=== PATIENT | male | born 1970 | race Caucasian/White ===

== ENCOUNTER 2022-12-18 06:19 | Day surgery (SDC) | payer BC, SELFPAY ==
[2022-12-18] VITALS (12 sets, daily range): BP systolic 95–128; BP diastolic 66–93; PULSE 81–100; RESP 16; TEMP 36.1–36.8; O2SAT 98–100; BMI 29.9
[2022-12-18] MEDS: LACTATED RINGERS 1000 ML 1,000 ML 100 ML IV ×2 (06:45→08:25)
[2022-12-18] MEDS: SODIUM CHLORIDE 0.9 % (FLUSH) 10 ML SYRINGE IVF (06:45)
--- NOTE | 2022-12-18 07:10 | SUR.PREOP ---
HOME COVID TEST NEGATIVE.
[2022-12-18] MEDS: CEFAZOLIN 2 GM INJ IVP (07:40)
--- NOTE | 2022-12-18 07:56 | W.ANESCHARGE ---
Anesthesia Charges Start Date/Time Anesthesia Start Date: 12/18/22 Anesthesia Start Time: 07:26 Stop Date/Time Anesthesia Stop Date: 12/18/22 Anesthesia Stop Time: 08:12
[2022-12-18] MEDS: BUPIVACAINE 0.25% 30 ML INJECTION (07:59)
--- NOTE | 2022-12-18 08:04 | P.ORPRC_ITS ---
Procedure Note Date of procedure: 12/18/22 Procedure: PREOPERATIVE DIAGNOSIS: Right knee medial meniscus tear POSTOPERATIVE DIAGNOSIS: Right knee medial meniscus tear NAME OF OPERATION: Right knee arthroscopic partial medial meniscectomy SURGEON: Micheal Hayes MD OPHTHALMIC MEDICAL TECHNOLOGIST: JESSENIA Olmstead ANESTHESIA: Spinal ESTIMATED BLOOD LOSS: 0 mL COMPLICATIONS: None SPECIMENS: None DRAINS: None PREOPERATIVE ANTIBIOTICS: Ancef 2 gram INDICATIONS: The patient is a 52-year-old with a history of right knee medial pain. MRI scan is consistent with a medial meniscus tear. Despite appropriate nonoperative management, including activity modification, antiinflammatories, [id number] pain medication, bracing, physical therapy, and injections they continue to have pain and disability. Operative intervention was offered. The risks, benefits and expected outcomes were discussed in detail. These included but were not limited to: Infection, bleeding, injury to blood vessel or nerve, venous thromboembolism. All questions were answered to their satisfaction. PROCEDURE: Spinal anesthesia was administered. The patient was placed supine on the operating room table. The right lower extremity was prepped and draped in the usual sterile fashion. The limb was exsanguinated with the Daniel bandage. The pneumatic tourniquet was inflated to 300 mmHg. A standard anterolateral portal was established. The arthroscope was introduced. The working portal was established anteromedially. Diagnostic arthroscopy was performed with findings as follows: The suprapatellar pouch is normal. Articular surface on the patella is normal. Articular surface on the trochlea is normal. The medial gutter is normal. The medial compartment shows diffuse grade 2/3 change on the medial femoral condyle, normal articular cartilage on the medial tibial plateau. The medial meniscus has a radial tear of the posterior horn from the leading edge, not to the capsule. This creates an anteriorly based unstable flap. There is some undersurface horizontal cleavage tearing of the anterior and posterior flaps. The root is intact. The notch shows the ACL to be intact. The lateral compartment shows normal articular cartilage on the lateral femoral condyle and lateral tibial plateau. The lateral meniscus is normal. The lateral gutter is normal. The posterior horn of the medial meniscus was debrided to a stable base using a combination of priscila through both portals. Unstable chondral flaps on the medial femoral condyle were debrided with the shaver through both portals, taken to a stable base. Arthroscopic instruments were removed, the portal sites were Steri-Stripped closed, the knee was infiltrated with 30 mL of 0.25% Marcaine without epinephrine. A dry dressing was applied, the tourniquet was released. Sponge and needle counts were correct x 2. The patient tolerated the procedure well. There were no apparent complications. They were carefully transferred to the hospital bed and taken to the postanesthesia care unit in satisfactory condition. PLAN: The patient will be discharged to home. They may weightbear as tolerates. Range of motion will be unrestricted. They will follow up in the office next week for a wound check.
--- NOTE | 2022-12-18 08:14 | W.ANESCHARGE ---
Anesthesia Charges Start Date/Time Anesthesia Start Date: 12/18/22 Anesthesia Start Time: 07:26 Stop Date/Time Anesthesia Stop Date: 12/18/22 Anesthesia Stop Time: 08:12
== END 2022-12-18 10:21 | disposition home or self-care (01) ==
PROVIDERS: PCP Internal Medicine; Visit Provider Orthopaedic Surgery
PROC: (CPT 29870; principal; 2022-12-18 07:45)
DX: M23.221 Derangement of posterior horn of medial meniscus due to old tear or injury, right knee (principal)
CPT/HCPCS: 29881; 01400; 82962; T1013; J0690; J2250; J2370; J2400; J2405; J2704; J3010; J3490; J7120

== ENCOUNTER 2023-01-08 06:12 | Day surgery (SDC) | payer BC, SELFPAY ==
[2023-01-08] VITALS (14 sets, daily range): BP systolic 114–144; BP diastolic 68–102; PULSE 97–115; RESP 12–20; TEMP 36.2–37; O2SAT 96–100; BMI 28.5
[2023-01-08] MEDS: LACTATED RINGERS 1000 ML 1,000 ML 100 ML IV ×2 (06:10→09:32)
[2023-01-08] MEDS: SODIUM CHLORIDE 0.9 % (FLUSH) 10 ML SYRINGE IVF (06:44)
[2023-01-08] MEDS: CEFAZOLIN 2 GM INJ IVP (08:47)
--- NOTE | 2023-01-08 08:57 | SUR.OPER ---
PATIENT QUESTIONS ANSWERED SATISFACTORILY PREOPERATIVELY WITH AN TROLLEY WIRE INSTALLER. PATIENT BROUGHT TO OR #1 PER WHEELCHAIR. Patient positioned supine on OR #1 bed.? BILATERAL ARMS ARE TUCKED IN A NEUTRAL POSITION USING THE DRAWSHEET BY CHIRAG FLOYD CRNA. Final approval of positioning by surgeon.
[2023-01-08] MEDS: BUPIVACAINE 0.25% 30 ML INJECTION (09:05)
--- NOTE | 2023-01-08 09:57 | PM.GSPRC ---
Operative Note Date of procedure: 01/08/23 Pre-op diagnosis: Left inguinal hernia Post-op diagnosis: same Type of Procedure: Laparoscopic left inguinal hernia repair with mesh Indications: The patient is a 52-year-old male who presented with a symptomatic left inguinal hernia for the past few months. After discussion of options, he elected to proceed with repair. Procedure Description: After discussing the risks and benefits of the procedure, the patient signed informed consent.? The operative site was marked and the patient was brought to the operating room and placed on the operating table in supine position.? Care was taken to pad the patient's pressure points.?? The patient was then intubated by anesthesia.?? The operative site was then prepped and draped in the usual sterile fashion.? A time-out was then performed. A curvilinear incision was made below the umbilicus. Dissection was carried down to subcutaneous tissue until the anterior rectus fascia was encountered. This was incised off the midline on the left. The rectus muscle fibers were then retracted exposing the posterior fascia. A port with a dissecting balloon was then introduced into the pre-preperitoneal space. This was inflated under direct vision. The balloon was deflated, removed, and a 10 mm working port was placed. The space was insufflated and a 10 mm 30-degree scope was then advanced into the space. Two 5 mm ports were placed in the midline under direct vision. Dissection began on the left side. Jai's ligament and the pubic bone were exposed medially. There appeared to be a weakening of the abdominal wall in the area of a direct hernia. Following this, dissection was carried out laterally. A small hernia sac with a large cord lipoma was noted. The sac and cord lipoma were dissected free from the cord structures using a combination of sharp and blunt dissection. Once the sac was completely reduced, a piece of Bard 3DMax mesh for the appropriate side was placed into the abdomen. This was positioned with the marker pointed medially. A Tacker was used to attach the mesh medially at Jai's ligament, medially on the abdominal wall and 1 tack laterally with care to avoid the epigastric vessels and stay above the inguinal ligament. Once this was completed the sac was placed on top of the mesh and the preperitoneal space desufflated under direct vision to ensure the mesh laid flat. 10 mL of 0.5% Marcaine were instilled into the preperitoneal space through a port. The ports were removed. The fascia from the infraumbilical port was closed with 0 Vicryl. The skin incisions were closed with absorbable subcuticular suture. Sterile dressings were then applied. The scrotum was examined to ensure that both testicles were down. Instrument sponge and needle counts were correct at the end of the case. ? The patient was then woken and transported to the recovery area in stable condition. ? The patient tolerated the procedure well. Findings: Possible direct hernia defect with what appeared to be weakening of the abdominal wall in this area. Indirect hernia with a large cord lipoma. Implants: Bard 3DMax mesh Anesthesia: GETA Surgeon: Gricel Oliva MD Estimated blood loss (mL): 10 Condition: stable Disposition: PACU
--- NOTE | 2023-01-08 10:08 | W.ANESCHARGE ---
Anesthesia Charges Start Date/Time Anesthesia Start Date: 01/08/23 Anesthesia Start Time: 08:32 Stop Date/Time Anesthesia Stop Date: 01/08/23 Anesthesia Stop Time: 10:10
[2023-01-08] MEDS: HYDROCODONE-ACETAMIN 5-325 MG 1 TAB PO (12:15)
== END 2023-01-08 12:30 | disposition home or self-care (01) ==
PROVIDERS: PCP Student in an Organized Health Care Education/Training Program; Visit Provider Surgery
PROC: (CPT 49650; principal; 2023-01-08 09:00)
DX: K40.90 Unilateral inguinal hernia, without obstruction or gangrene, not specified as recurrent (principal)
CPT/HCPCS: 49650; 00830; 82962; T1013; A9270; C1781; J0330; J0690; J1100; J2250; J2370; J2405; J2704; J2710; J3010; J3490; J7120

== ENCOUNTER 2023-01-22 14:43 | Outpatient (RCR) | payer BC, SELFPAY | END 2023-04-23 23:59 | disposition home or self-care (01) | PROVIDERS: PCP Internal Medicine; Visit Provider Physician Assistant Surgical | DX: M25.561 Pain in right knee (principal); Z98.890 Other specified postprocedural states; M62.81 Muscle weakness (generalized); Z51.89 Encounter for other specified aftercare | CPT/HCPCS: 97110; 97162; T1013 ==

== ENCOUNTER 2023-01-30 16:30 | Outpatient (RCR) | payer BC, SELFPAY | END 2023-03-30 11:27 | disposition home or self-care (01) | PROVIDERS: PCP Student in an Organized Health Care Education/Training Program; Visit Provider Student in an Organized Health Care Education/Training Program | DX: M54.16 Radiculopathy, lumbar region (principal); M79.605 Pain in left leg; M62.562 Muscle wasting and atrophy, not elsewhere classified, left lower leg; Z51.89 Encounter for other specified aftercare | CPT/HCPCS: 97012; 97110; 97162; T1013 ==

== ENCOUNTER 2023-01-30 19:15 | Emergency (ER) | payer BC, SELFPAY ==
--- NOTE | 2023-01-30 19:31 | CRLHL7_ITS ---
For Patients: As a result of the Century Cures Act, medical imaging exams and procedure reports are released immediately into your electronic medical record. You may view this report before your referring provider. If you have questions, please contact your health care provider. Indication: Back pain with radiculopathy Technique: Two images of the lumbosacral spine were acquired Comparison: None Findings: Normal alignment. Height of vertebral bodies is normal. No fracture, dislocation or destructive process. No narrowing of the intervertebral disc spaces. Relatively mild facet osteoarthritis primarily at L4-L5 and L5-S1. Minimal levoscoliosis. Impression: Relatively mild degenerative changes primarily in the facet joints of L4-L5 and L5-S1. Minimal levoscoliosis. No fracture, destructive process or loss of vertebral body height Dictated by Ze Flor MD @ 01/30/2023 7:58:32 PM (Electronically Signed)
[2023-01-30 19:34] VITALS: BP 164/103; PULSE 104; RESP 16; TEMP 36.9; O2SAT 100; BMI 29.9
--- NOTE | 2023-01-30 20:10 | ED.BACK ---
HPI - Back Pain/Injury General Date Seen: 01/30/23 Chief Complaint: Back Injury/Pain Stated Complaint: Pain Left side down leg Time Seen by Provider: 01/30/23 19:18 Source: patient and family Mode of arrival: ambulatory Limitations: no limitations History of Present Illness HPI Narrative: Patient is a 52-year-old gentleman who presents here with left-sided back pain, he has had this for some time, I think it is been dating back to September when he was snow shoveling. He describes pain that comes from his back down his left leg, on the lateral distribution to the anterior feldman, to the top of his foot on the large toe. He has noted a primarily worse now as he has just been through a right-sided knee arthroscopic surgery and a left-sided groin all inguinal hernia repair. He is taking Tylenol and ibuprofen for the discomfort, he notes no history of fevers chills or sweats there is no personal history of malignancy. MD elicited complaint: back pain Related Data Home Medications Medication Instructions Recorded Confirmed external catheter, male (Active 11/12/22 12/25/22 Cath) metformin 500 mg tablet 500 mg PO BID 11/12/22 01/30/23 tamsulosin 0.4 mg capsule 0.4 mg PO DAILY 11/12/22 01/30/23 gabapentin 300 mg capsule 300 mg PO TID 12/17/22 01/30/23 glipizide 5 mg tablet, extended 5 mg PO DAILY 12/17/22 01/30/23 release 24 hr (Glucotrol XL) Allergies Allergy/AdvReac Type Severity Reaction Status Date / Time No Known Drug Allergies Allergy Verified 01/08/23 06:30 Review of Systems Status of ROS: Reports: 10 or more systems reviewed and unremarkable except as noted in History and below [facility] Medical History Diabetes ?E11.9 - Type 2 diabetes mellitus without complications (ICD-10) Inflammatory disease of prostate ?N41.9 - Inflammatory disease of prostate, unspecified (ICD-10) Surgical History H/O left inguinal hernia repair ?Z98.890 - Other specified postprocedural states (ICD-10) ?Z87.19 - Personal history of other diseases of the digestive system (ICD-10) History of appendectomy ?Z90.49 - Acquired absence of other specified parts of digestive tract (ICD-10) Hx of cystoscopy ?Z98.890 - Other specified postprocedural states (ICD-10) S/P right knee arthroscopy (12/18/22) ?Z98.890 - Other specified postprocedural states (ICD-10) Social History Smoking Status: Never smoker Do you use any of these nicotine containing products: None How often do you have a drink containing alcohol: never How often do you have six or more drinks on one occasion: Never AUDIT-C Alcohol total score: 0 Non-prescribed substance use: denies use Caffeine: Yes (COFFEE) service: No Exam Narrative: Exam Narrative: On exam in room 7 he is in no apparent distress he is able to walk around normally, forward flexion is hands within 6 in of the floor backward extension lateral flexion all normal there is no palpable tenderness noted over his L-spine on palpation percussion straight leg raising bilaterally in the seated position is normal, he does not have any augmented rib abnormality is reflexes are 1/4 his knees bilaterally in his ankles also too. When I get him to walk on his heels he has a little bit weak on his left dorsiflexors of his foot I described him as 4+ out of 5 his EHLs are normal bilaterally. Great toe flexors knee flexors 10 sirs and hip flexors are graded 5/5 power bilaterally. Sensation is normal over all the signature dermatomal areas but he does give a pretty good description of pain going into the L5 dermatome on the left side. Const: Vital Signs, click to edit/add: Vital Signs - 24 hr 01/30/23 19:34 Temperature 98.5 F Pulse Rate [Right Pulse Oximeter] 104 H Respiratory Rate 16 Blood Pressure [Le ft Upper Arm] 164/103 H Pulse Oximetry 100 Oxygen Delivery Me thod Room Air Documenting provider has reviewed patient's vital signs: yes Course Course Hospital Course: I discussed with the patient that his x-rays show minimal arthritis I do suspect the is L5 disc herniation here. We will put him some prednisone give him some Flexeril for discomfort and I also recommend that he use Tylenol for the discomfort, he initially would like an injection or something else I explained we do not do that other emergency room. He will need to follow-up with his primary care physician of get him scheduled for this her further imaging. I wrote do not recommend use of the ibuprofen with the prednisone, he was on gabapentin in the past and that would also be a thing that his primary care physician can add on. Vital Signs Vital signs: Initial Vital Signs Temperature 98.5 F 01/30/23 19:34 Temperature Source Temporal Artery Scan 01/30/23 19:34 Pulse Rate 104 H 01/30/23 19:34 Pulse Rhythm Regular 01/30/23 19:34 Respiratory Rate 16 01/30/23 19:34 Blood Pressure 164/103 H 01/30/23 19:34 Blood Pressure Mean 123 H 01/30/23 19:34 Blood Pressure Position Sitting 01/30/23 19:34 Pulse Oximetry 100 01/30/23 19:34 Oxygen Delivery Method Room Air 01/30/23 19:34 Vital Signs Temperature 98.5 F 01/30/23 19:34 Pulse Rate 104 H 01/30/23 19:34 Respiratory Rate 16 01/30/23 19:34 Blood Pressure 164/103 H 01/30/23 19:34 Pulse Oximetry 100 01/30/23 19:34 Oxygen Delivery Method Room Air 01/30/23 19:34 Temperature 98.5 F 01/30/23 19:34 Pulse Rate 104 H 01/30/23 19:34 Respiratory Rate 16 01/30/23 19:34 Blood Pressure 164/103 H 01/30/23 19:34 Pulse Oximetry 100 01/30/23 19:34 Oxygen Delivery Method Room Air 01/30/23 19:34 MDM - Back Pain/Injury MDM Narrative Medical decision making narrative: Life-threatening differential diagnosis considered include: Cauda equina an epidural abscess, other differential diagnosis considered includes sprain, contusion, nerve root entrapment, radiculopathy, muscle spasm, urolithiasis, lumbar fracture, pyelonephritis, appendicitis, biliary colic, as well as other etiologies. The patient denies saddle anesthesia bowel or bladder incontinence or lower extremity weakness, recent weight loss, or history of malignancy. Medical Records Attestation: I reviewed the patient's medical records. Imaging Data Lumbar x-ray: My impression: Negative acute x-ray Radiologist's impression: atient: CARLITOS RUIZ Facility:?[facility] Patient ID:?[id number] Site Patient ID:?[id number]. Site :?[id number] Study:?XRay Spine Lumbar 2 views-01/30/2023 7:55:12 PM Ordering Physician:?Tien Lewis Final Report: Indication: Back pain with radiculopathy Technique: Two images of the lumbosacral spine were acquired Comparison: None Findings: Normal alignment. Height of vertebral bodies is normal. No fracture, dislocation or destructive process. No narrowing of the intervertebral disc spaces. Relatively mild facet osteoarthritis primarily at L4-L5 and L5-S1. Minimal levoscoliosis. Impression: Relatively mild degenerative changes primarily in the facet joints of L4-L5 and L5-S1. Minimal levoscoliosis. No fracture, destructive process or loss of vertebral body height Dictated by Ze Flor MD @ 01/30/2023 7:58:32 PM (Electronic Signature) Discharge Plan Discharge Clinical Impression: Acute left lumbar radiculopathy Patient Disposition: Home w/ Parent or Adult Condition: Stable Instructions: Lumbar Radiculopathy (ED), Back Pain (ED), Epidural Steroid Injection (DC) Additional Instructions: Home rest Tylenol 1 g p.o. t.i.d. for the discomfort, use of prednisone as directed, follow-up this week with your primary care physician for consideration of further imaging, or injections. We do not do either of these out of the emergency room. The prednisone will increase the blood sugars please be aware of this. Activity Level: Light activity Prescriptions: No Action metformin 500 mg tablet 500 mg PO BID Patient Comments: TAKE ONE TABLET BY MOUTH TWICE A DAY WITH MEALS tamsulosin 0.4 mg capsule 0.4 mg PO DAILY Patient Comments: TAKE ONE CAPSULE BY MOUTH ONCE DAILY AFTER A MEAL (DME) Active Cath Misc See Rx Instructions .Route Rx Instructions: As directed gabapentin 300 mg capsule 300 mg PO TID glipizide [Glucotrol XL] 5 mg tablet extended release 24hr 5 mg PO DAILY Follow Up/Referrals: OBI LANG DO [Primary Care Provider] - Stand Alone Forms: MyHealth Info Instructions
--- NOTE | 2023-01-30 20:42 | ED.NURSE ---
Patient upset with plan of care. Explained how prednisone will help and follow up steps if pain is not improved. Became verbally upset and left ED. While up at [employer] machine patient was upset with care and was given olive grader card and patient advocate card. Patient still seemed to have issues regarding care and RN was summoned. With olive grader via ipad and RN, grievance form was completed.
--- NOTE | 2023-01-30 21:25 | ED.NURSE ---
Filled out grievance form for patient and placed into interoffice mail to Patient Advocate.
== END 2023-01-30 21:13 | disposition home or self-care (01) ==
LOC: ED 20:13
PROVIDERS: Emergency Provider Family Medicine; PCP Student in an Organized Health Care Education/Training Program
DX: M54.16 Radiculopathy, lumbar region (principal)
CPT/HCPCS: 72100; 99283; 99284

== ENCOUNTER 2023-03-13 14:49 | Outpatient (CLI) | payer BC, SELFPAY ==
--- NOTE | 2023-03-13 15:00 | CRLHL7_ITS ---
For Patients: As a result of the Century Cures Act, medical imaging exams and procedure reports are released immediately into your electronic medical record. You may view this report before your referring provider. If you have questions, please contact your health care provider. INDICATION: Pain COMPARISON: none TECHNIQUE: Quintero scale imaging was performed of the scrotum. In addition color Doppler and spectral Doppler analysis was performed of the testes. FINDINGS: The testes demonstrate normal arterial and venous blood flow on color Doppler and spectral Doppler analysis. The testes have uniform echogenicity with no evidence of a suspicious mass or area of inflammation. The right testis measures 4.3 x 1.9 x 2.6 cm in size and the left testis measures 4.1 x 1.8 x 2.7 cm. The epididymis appears normal bilaterally. There is no evidence of a hydrocele or varicocele. IMPRESSION: Normal scrotal ultrasound. Dictated by Pierre Lazaro MD @ 03/14/2023 6:05:19 AM (Electronically Signed)
== END 2023-03-13 14:50 | disposition home or self-care (01) ==
LOC: US 14:50
PROVIDERS: PCP Family Medicine; Visit Provider Surgery
DX: N50.82 Scrotal pain (principal)
CPT/HCPCS: 76870; 93976; T1013

== ENCOUNTER 2023-03-20 16:09 | Outpatient (CLI) | payer BC, SELFPAY | END 2023-03-20 16:10 | disposition home or self-care (01) | LOC: NFLDREF 16:11 | PROVIDERS: PCP Family Medicine; Visit Provider Family Medicine | DX: I10 Essential (primary) hypertension (principal); R63.4 Abnormal weight loss; E11.9 Type 2 diabetes mellitus without complications | CPT/HCPCS: 80048; 80061; 80076; 84443 ==

== ENCOUNTER 2023-05-29 11:03 | Outpatient (CLI) | payer BC, SELFPAY ==
--- NOTE | 2023-05-29 11:15 | CRLHL7_ITS ---
For Patients: As a result of the 21st Century Cures Act, medical imaging exams and procedure reports are released immediately into your electronic medical record. You may view this report before your referring provider. If you have questions, please contact your health care provider. HISTORY: Radiculopathy. TECHNIQUE: Noncontrast and contrast-enhanced MRI of the pelvis. MRI of the sacral plexus. COMPARISON: No prior pelvic MRI. FINDINGS: Osseous structures: There is no acute pelvic fracture. No pathologic marrow replacement process. No avascular necrosis or osteomyelitis. - Hip joints: On the right, there is a small area of subchondral bone marrow edema involving the anterior superior acetabulum likely indicating limited grade 4 full-thickness cartilage loss. Mild femoral head cartilage wear. There is paralabral cyst formation abutting the anterior superior labrum likely indicating that there is labral tearing. No right hip joint effusion. On the left, a small focus of subchondral bone marrow edema involving the anterior superior acetabulum likely indicates presence of grade 4 chondromalacia. Mild femoral head cartilage wear. Probable degenerative labral tearing anterosuperiorly. No left hip joint effusion. - Musculotendinous structures and bursae: The distal gluteus medius and minimus tendons are intact. No trochanteric bursal fluid collection. There is an area of muscle signal abnormality involving the right gluteus tahira muscle which could relate to muscle strain, muscle contusion or to a recent injection. The distal iliopsoas tendons are intact. The common hamstring tendons are intact. The conjoined adductor tendons at their medial pubic attachment site appear intact. There is mild interstitial muscle edema involving the left obturator externus muscle. No significant muscle atrophy. - Sacrum, coccyx, sacroiliac joints and sacral plexus: There are bilateral sacroiliac joint degenerative changes. No sacroiliitis. Mild loss of disc height within the lower lumbar spine with slight disc desiccation. At L5-S1, no central canal or foraminal stenosis. At L4-L5, there is posterior annular disc bulging. No significant central canal stenosis. Mild foraminal narrowing. At L3-L4, no central canal or foraminal stenosis. No mass or abnormal enhancement associated with the sacral nerve roots at the sacral foraminal levels nor of the sacral plexus. The proximal-most sciatic nerves are unremarkable. Included femoral nerves are unremarkable. There is some edema involving the lower paraspinal musculature. - Other findings: Urinary bladder is distended. The prostate is prominent in size. Patient has undergone inguinal hernia repair bilaterally. IMPRESSION: 1. Bilateral sacroiliac joint degenerative changes. No sacroiliitis. 2. Mild degenerative changes within the lower lumbar spine. 3. No mass or abnormal enhancement associated with the sacral nerve roots or included sacral plexus. 4. Area of muscle signal abnormality involving the right gluteus tahira muscle which could relate to muscle strain, muscle contusion or to a recent injection. 5. Degenerative changes of the hips. Dictated by Hari Choi MD @ 05/29/2023 4:43:34 PM (Electronically Signed)
== END 2023-05-29 11:04 | disposition home or self-care (01) ==
LOC: MRI 11:05
PROVIDERS: PCP Family Medicine; Visit Provider Family Medicine
DX: M54.16 Radiculopathy, lumbar region (principal); M47.898 Other spondylosis, sacral and sacrococcygeal region; M51.36 Other intervertebral disc degeneration, lumbar region; M16.0 Bilateral primary osteoarthritis of hip
CPT/HCPCS: 72197; T1013; A9575

== ENCOUNTER 2023-06-05 12:43 | Outpatient (CLI) | payer BC, SELFPAY | END 2023-06-05 12:44 | disposition home or self-care (01) | LOC: NFLDREF 12:44 | PROVIDERS: PCP Family Medicine; Visit Provider Family Medicine | DX: E11.44 Type 2 diabetes mellitus with diabetic amyotrophy (principal) | CPT/HCPCS: 80048; 84443; 84460; 86140 ==

== ENCOUNTER 2023-06-27 15:22 | Emergency (ER) | payer BC, SELFPAY ==
[2023-06-27 15:35] VITALS: BP 113/77; PULSE 99; RESP 14; TEMP 36.7; O2SAT 100; BMI 26.3
[2023-06-27 15:57] LABS: Appearance Urine Clear (Clear); Bilirubin Urine Negative (Negative); Blood Urine Trace-intact (Negative); Color Urine Yellow (Yellow); Glucose Urine Negative (Negative); Ketones Urine Negative (Negative); Leukocyte Esterase Urine Trace (Negative); Nitrite Urine Negative (Negative); Protein Urine Negative (Negative); Specific Gravity Urine 1.015 (1.000-1.030); Urobilinogen Urine 0.2 (0.2-1.0); pH Urine 6.5 (5.0-8.5)
--- NOTE | 2023-06-27 16:18 | CRLHL7_ITS ---
For Patients: As a result of the Cures Act, medical imaging exams and procedure reports are released immediately into your electronic medical record. You may view this report before your referring provider. If you have questions, please contact your health care provider. INDICATION: Dysuria hematuria TECHNIQUE: CT abdomen and pelvis without contrast. COMPARISON: None FINDINGS: Lower chest: Unremarkable. Liver: Unremarkable. Spleen: Unremarkable. Pancreas: Unremarkable. Gallbladder and bile ducts: Unremarkable. Kidneys: Unremarkable. No kidney or ureteral stones and no hydronephrosis. Adrenal glands: Unremarkable. GI tract: Unremarkable. Vascular structures: Unremarkable. Lymph nodes: Unremarkable. Miscellaneous: Unremarkable. No free air or significant free fluid. Pelvic Organs: Enlarged prostate gland. Diffuse mild wall thickening in the urinary bladder could be related to incomplete distention or possibly cystitis. Bones: Unremarkable for age. IMPRESSION: 1. No renal calculi or hydronephrosis. There is mild diffuse wall thickening of the urinary bladder which could be related to incomplete distention or possibly cystitis. Please note that all CT scans at this facility use dose modulation, iterative reconstruction, and/or weight-based dosing when appropriate to reduce radiation dose to as low as reasonably achievable. Dictated by Ness Heart MD @ 06/27/2023 5:14:41 PM (Electronically Signed)
--- NOTE | 2023-06-27 16:41 | ED_ITS ---
HPI - General Adult General Date Seen: 06/27/23 Chief complaint: Urogenital Problems, Male Stated complaint: Burning in genitals Time Seen by Provider: 06/27/23 15:55 Source: patient and content production specialist Mode of arrival: ambulatory Limitations: language barrier History of Present Illness HPI narrative: Patient is a 52-year-old male who is Iranian speaking, history is obtained with the assistance of an content production specialist. He had a urethral dilation and sounds like a little over a month ago with [facility], reports that he had done well after that procedure but over the past week has developed dysuria, burning with urination and urethral pain. He has not had abdominal pain, fevers, vomiting. Reported some testicular pain to the nurse, not to me. Has not seen any blood. He says initially pain was just with urination but now it is uncomfortable all the time. Related Data Home Medications Medication Instructions Recorded Confirmed blood sugar diagnostic (Contour #10 ea 04/17/23 06/05/23 Next Test Strips) blood-glucose meter (Contour Next #1 ea 04/17/23 06/05/23 Meter) lancets (Microlet Lancet) #100 ea 04/17/23 06/05/23 metformin 500 mg tablet 1,000 mg PO BID 04/17/23 06/05/23 Previous Rx's Medication Instructions Recorded glipizide 5 mg tablet, extended 5 mg PO DAILY #90 tabs 03/20/23 release 24 hr (Glucotrol XL) tamsulosin 0.4 mg capsule 0.4 mg PO DAILY #90 caps 03/20/23 gabapentin 300 mg capsule 900 mg (3 x 300 mg) PO TID #270 06/05/23 caps meloxicam 15 mg tablet 15 mg PO QPM #30 tabs 06/05/23 tramadol 50 mg tablet 100 mg (2 x 50 mg) PO BID #120 tabs 06/05/23 phenazopyridine 200 mg tablet 200 mg PO TID 6 doses #10 tabs 06/27/23 (Pyridium) Allergies Allergy/AdvReac Type Severity Reaction Status Date / Time No Known Drug Allergies Allergy Verified 06/05/23 11:16 Review of Systems Status of ROS: Reports: 6 or more systems reviewed and unremarkable except as noted in History and below [facility] Medical History 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) Hypospadias ?Q54.9 - Hypospadias, unspecified (ICD-10) Osteoarthritis of right knee ?M17.11 - Unilateral primary osteoarthritis, right knee (ICD-10) Urethral stenosis Diabetic neuropathy ?E11.40 - Type 2 diabetes mellitus with diabetic neuropathy, unspecified (ICD-10) BPH (benign prostatic hyperplasia) ?N40.0 - Benign prostatic hyperplasia without lower urinary tract symptoms (ICD-10) Type 2 diabetes mellitus ?E11.9 - Type 2 diabetes mellitus without complications (ICD-10) Lumbar back pain with radiculopathy affecting left lower extremity ?M54.16 - Radiculopathy, lumbar region (ICD-10) Inflammatory disease of prostate ?N41.9 - Inflammatory disease of prostate, unspecified (ICD-10) Surgical History History of knee surgery ?Z98.890 - Other specified postprocedural states (ICD-10) H/O left inguinal hernia repair (01/08/23) ?Z98.890 - Other specified postprocedural states (ICD-10) ?Z87.19 - Personal history of other diseases of the digestive system (ICD-10) Hx of cystoscopy ?Z98.890 - Other specified postprocedural states (ICD-10) History of appendectomy ?Z90.49 - Acquired absence of other specified parts of digestive tract (ICD- 10) Family History Father Diabetes Mother Diabetes Social History Narrative: , non-smoker, Smoking Status: Never smoker Do you use any of these nicotine containing products: None How often do you have a drink containing alcohol: never How often do you have six or more drinks on one occasion: Never AUDIT-C Alcohol total score: 0 Non-prescribed substance use: denies use Caffeine: Yes (COFFEE) Little interest or pleasure in doing things: not at all Feeling down, depressed, or hopeless: nearly every day service: No Exam Narrative: Exam Narrative: Vital signs as noted above. In general, an alert, well-appearing patient. Head: Normocephalic, atraumatic. Eyes: Pupils are equal reactive. Extraocular movements are full. Conjunctivae are normal. ENT: Mucous membranes are moist. Abdomen: Soft and nontender. No organomegaly. Extremities: Well perfused. No edema. No calf tenderness. Pulses intact. Neurologic: Patient is alert and oriented to person and place. Speech is fluent. Face is symmetric. Moves all extremities equally. Affect: Normal. Skin: Warm and dry. Well perfused. Const: Vital Signs, click to edit/add: Vital Signs - 24 hr 06/27/23 15:35 06/27/23 17:54 Temperature 98.1 F 98.1 F Pulse Rate [Pulse Oximeter] 99 99 Respiratory Rate 14 14 Blood Pressure [Ri ght Upper Arm] 113/77 113/77 Pulse Oximetry 100 Oxygen Delivery Me thod Room Air Documenting provider has reviewed patient's vital signs: yes Course Course ED Course: Initially started with urinalysis, this shows 0-2 white cells, 2-5 red cells, no bacteria. This I think makes infection and unlikely cause for his symptoms. Am going to get a CT and rule out the also probably unlikely possibility of kidney stone, will check a couple of labs including a CBC, metabolic panel, CRP. CT read as negative by Radiology aside from some bladder wall thickening, but with a negative UA my suspicion of infection again is low. Culture is pending. For now would recommend treating this symptomatically with Pyridium, I think he needs to touch base with Urology, does not sound like he is having any recurrent symptoms of ureteral stenosis, but given that he just had this procedure recently I do think he needs to talk with Urology. I do not have anything really to suggest prostatitis, labs are normal, white blood cell count is 5.5, normal diff, sodium mildly low 129, creatinine 0.4, CRP is less than 0.5. For fevers, severe worsening pain, vomiting etcetera return to the ER, otherwise urology follow-up call on Thursday. Pyrydium prescribed. Vital Signs Vital signs: Initial Vital Signs Temperature 98.1 F 06/27/23 15:35 Temperature Source Temporal Artery Scan 06/27/23 15:35 Pulse Rate 99 06/27/23 15:35 Pulse Rhythm Regular 06/27/23 15:35 Respiratory Rate 14 06/27/23 15:35 Blood Pressure 113/77 06/27/23 15:35 Blood Pressure Mean 89 06/27/23 15:35 Blood Pressure Position Supine 06/27/23 15:35 Pulse Oximetry 100 06/27/23 15:35 Oxygen Delivery Method Room Air 06/27/23 15:35 Vital Signs Temperature 98.1 F 06/27/23 15:35 Pulse Rate 99 06/27/23 15:35 Respiratory Rate 14 06/27/23 15:35 Blood Pressure 11377 06/27/23 15:35 Pulse Oximetry 100 06/27/23 15:35 Oxygen Delivery Method Room Air 06/27/23 15:35 Temperature 98.1 F 06/27/23 17:54 Pulse Rate 99 06/27/23 17:54 Respiratory Rate 14 06/27/23 17:54 Blood Pressure 11306/27/23 17:54 Pulse Oximetry 100 06/27/23 15:35 Oxygen Delivery Method Room Air 06/27/23 15:35 Medical Decision Making Lab Data Labs: Lab Results 06/27/23 06/27/23 Range/Units 15:50 16:47 WBC 5.53 (4.50-11.00) K/uL RBC 4.77 (4.30-5.90) m/uL Hgb 14.4 (13.5-17.5) gm/dL Hct 40.6 (37.0-53.0) % MCV 85 (80-100) fL MCH 30 (26-34) pg MCHC 36 (32-36) gm/dL RDW Coeff of Arash 12.9 (11.5-15.5) % Plt Count 297 (140-440) K/uL Neut % (Auto) 58.1 (42.0-72.0) % Lymph % (Auto) 32.0 (20-44) % [place] % (Auto) 8.7 (0.0-11.0) % Eos % (Auto) 0.7 (0.0-7.0) % Baso % (Auto) 0.5 (0.0-3.0) % Neut # (Auto) 3.21 (1.7-7.0) K/uL Lymph # (Auto) 1.77 (0.90-2.90) K/uL [place] # (Auto) 0.50 (0.00-0.90) K/UL Eos # (Auto) 0.04 (0.00-0.50) K/uL Baso # (Auto) 0.03 (0.00-0.30) K/uL Abs Immat Gran (auto) 0.00 (0.00-0.30) K/uL Imm/Tot Granulo (auto) 0.0 % ESR 6 (2-15) mm/hr Sodium 129 L (135-149) mmol/L Potassium 3.9 (3.6-5.1) mmol/L Chloride 94 L (96-114) mmol/L Carbon Dioxide 23 (20-32) mmol/L Anion Gap 12 (7-15) mEq/L BUN 13 (7-30) mg/dL Creatinine 0.4 L (0.5-1.5) mg/dL Estimated Creat Clear 156.17 Estimated GFR 130 ml/min Glucose 99 (60-115) mg/dL Calcium 9.6 (8.4-10.6) mg/dL C-Reactive Protein < 0.5 L (0.5-1.0) mg/dL Urine Color Yellow (Yellow) Urine Appearance Clear (Clear) Urine pH 6.5 (5.0-8.5) Ur Specific [place] 1.015 (1.000-1.030) Urine Protein Negative (Negative) Urine Glucose (UA) Negative (Negative) Urine Ketones Negative (Negative) Urine Blood Trace-intact A (Negative) Urine Nitrite Negative (Negative) Urine Bilirubin Negative (Negative) Urine Urobilinogen 0.2 (0.2-1.0) Ur Leukocyte Esterase Trace A (Negative) Urine RBC 2-5 A (0-2) Urine WBC 2-5 (0-5) Ur Squamous Epith Cells None (None-Few) Urine Bacteria None (None) Discharge Plan Discharge Clinical Impression: Dysuria Patient Disposition: Home, Self-Care Condition: Stable Instructions: Dysuria (ED) Additional Instructions: Your evaluation today does not show any signs of infection, kidney stones, bladder stones, or other obvious abnormalities. For now, I would recommend that we treat you symptomatically with Pyridium, and I would like you to call your urologist on Thursday for follow-up and further instructions. If in the meantime you develop new symptoms such as fevers, chills, vomiting etcetera return to the emergency department. Solomon evaluaci?n de hoy no muestra gilma?n signo de infecci?n, c?lculos renales, c?lculos en la vejiga u otras anomal?as obvias. Por ahora, recomendar?a que lo tratemos sintom?ticamente con Pyridium y me gustar?a que llamara a solomon ur?logo el lunes para seguimiento y m?s instrucciones. Si mientras tanto desarrolla nuevos s?ntomas roshni fiebre, escalofr?os, v?mitos, etc., regrese al departamento de emergencias. Pyridium: Maria Elena melissa tableta cuando necesita no mas de 3 veces al gypsy. Prescriptions: New phenazopyridine [Pyridium] 200 mg tablet 200 mg PO TID Qty: 10 0RF No Action meloxicam 15 mg tablet 15 mg PO QPM Qty: 30 5RF gabapentin 300 mg capsule 900 mg PO TID Qty: 270 2RF tramadol 50 mg tablet 100 mg PO BID Qty: 120 2RF Rx Instructions: Chronic pain, not acute pain tamsulosin 0.4 mg capsule 0.4 mg PO DAILY Qty: 90 3RF glipizide [Glucotrol XL] 5 mg tablet extended release 24hr 5 mg PO DAILY Qty: 90 3RF (DME) Contour Next Test Strips Strip See Rx Instructions .ROUTE DAILY Qty: 10 Rx Instructions: Use to check blood glucose twice daily (DME) blood-glucose meter [Contour Next Meter] Misc See Rx Instructions .ROUTE .MEDSUPPLY Qty: 1 Patient Comments: [NO ORIGINAL SIG] Rx Instructions: Use to check blood glucose twice daily (DME) lancets [Microlet Lancet] Misc See Rx Instructions .ROUTE DAILY Qty: 100 Rx Instructions: Use to check blood glucose twice daily metformin 500 mg tablet 1,000 mg PO BID Follow Up/Referrals: Pierre Oconnell MD [Primary Care Provider] - Stand Alone Forms: MyHealth Info Instructions Discharge Comment: Called [facility] to relay new prescription. Called Kevin Mccarty to cancel prescription.
[2023-06-27 16:57] LABS: Basophils Absolute Auto 0.03 K/uL (0.00-0.30); Basophils Percent Auto 0.5 % (0.0-3.0); Eosinophils Absolute Auto 0.04 K/uL (0.00-0.50); Eosinophils Percent Auto 0.7 % (0.0-7.0); Hematocrit 40.6 % (37.0-53.0); Hemoglobin* 14.4 gm/dL (13.5-17.5); Lymphocytes Absolute Auto 1.77 K/uL (0.90-2.90); Mean Corpuscular HGB Conc 36 gm/dL (32-36); Mean Corpuscular Hemoglobin 30 pg (26-34); Mean Corpuscular Volume 85 fL (80-100); Monocytes Percent Auto 8.7 % (0.0-11.0); Neutrophils Absolute Auto 3.21 K/uL (1.7-7.0); Neutrophils Percent Auto 58.1 % (42.0-72.0); Platelet Count* 297 K/uL (140-440); RDW Coefficient of Variation % 12.9 % (11.5-15.5); Red Blood Count 4.77 m/uL (4.30-5.90); White Blood Count* 5.53 K/uL (4.50-11.00)
[2023-06-27 16:58] LABS: Slide Review Reflex No
[2023-06-27 17:10] LABS: Chloride* 94 mmol/L (96-114); Potassium* 3.9 mmol/L (3.6-5.1); Sodium* 129 mmol/L (135-149)
[2023-06-27 17:13] LABS: Creatinine* 0.4 mg/dL (0.5-1.5); Est. Creatinine Clearance* 156.17; Estimated Glomerular Filt Rate 130 ml/min
[2023-06-27 17:14] LABS: Anion Gap 12 mEq/L (7-15); Blood Urea Nitrogen* 13 mg/dL (7-30); Calcium* 9.6 mg/dL (8.4-10.6); Carbon Dioxide* 23 mmol/L (20-32); Glucose* 99 mg/dL (60-115)
[2023-06-27 17:20] LABS: C Reactive Protein* < 0.5 mg/dL (0.5-1.0)
[2023-06-27] MEDS: PHENAZOPYRIDINE HCL 200 MG TABLET PO (17:50)
[2023-06-27 17:54] VITALS: BP 113/77; PULSE 99; RESP 14; TEMP 36.7
[2023-06-27 17:57] LABS: Erythrocyte SedimentationRate* 6 mm/hr (2-15)
--- NOTE | 2023-06-27 18:09 | ED.NURSE ---
Pt notified of Rx called to [facility]. Voicemail left for [facility] to cancel rx.
== END 2023-06-27 17:57 | disposition home or self-care (01) ==
PROVIDERS: Emergency Provider Emergency Medicine; PCP Family Medicine
DX: R30.0 Dysuria (principal)
CPT/HCPCS: 36415; 74176; 80048; 81001; 85025; 85651; 86140; 99283; 99284; A9270

== ENCOUNTER 2023-08-10 16:01 | Outpatient (CLI) | payer BC, SELFPAY | END 2023-08-10 16:02 | disposition home or self-care (01) | LOC: NFLDREF 08-12 12:19 | PROVIDERS: PCP Family Medicine; Referring Provider Family Medicine; Visit Provider Family Medicine | DX: E87.1 Hypo-osmolality and hyponatremia (principal) | CPT/HCPCS: 80048 ==

== ENCOUNTER 2024-01-29 15:57 | Outpatient (CLI) | payer BC, SELFPAY ==
--- OUTSIDE RECORDS SUMMARY | 2024-01-29 15:59 | XMS_ITS | Referral Summary ---
Author Name Unknown Organization [facility] Address [address] [place] [address] Care Team Providers Care Damage Adjuster Name Role Phone Elsewhere, Pcp Primary Care Provider Unavailabl e Source Comments Patient records contain information from all sites at [facility]. For routine questions regarding patient records, call [phone] during business hours, M-F 8:00 AM - 5:00 PM Central Time. Record requests for emergency care only can be directed to [phone] at any time.[facility] Allergies No known active allergies Medications Medication Sig Dispensed Refills Start Date End Date Status metFORMIN (GLUCOPHAGE) 500 mg tablet Take 1,000 mg by mouth. 12/26/2022 Active glipiZIDE (GLUCOTROL XL) 5 mg 24 hr tablet Take 5 mg by mouth. 12/26/2022 Active sulfamethoxazole- trimethoprim (BACTRIM DS) 800-160 mg per tablet As needed - take 1 pill after catheterization 06/06/2022 Active tamsulosin (FLOMAX) 0.4 mg 24 hr capsule Take 0.4 mg by mouth. 01/20/2022 Active cyclobenzaprine (FLEXERIL) 1.25 mg tablet Take 10 mg by mouth. 11/12/2022 Acti ve cyclobenzaprine (FLEXERIL) 10 mg tablet Take 1 tablet (10 mg total) by mouth 3 (three) times a day as needed for muscle spasms for up to 10 days. 20 tablet 02/01/2023 Active Active Problems Problem Noted Date Diagnosed Date Other Tear Medial Meniscus C urrent Injury Right Knee Initial 01/31/2023 01/31/2023 Primary Osteoarthritis Knee Right 01/31/2023 01/31/2023 Diabetes Mellitus Type 2 Hyperglycemia 3 01/31/2023 Hypospadias 11/12/2011 01/31/2023 Social History Tobacco Use Types Packs/Day Years Used Date Smoking Tobacco: Never Smokeless Tobacco: Never Tobacco Cessation:Counseling Given: Not Answered Alcohol Use Standard Drinks/Week Comments Never 0 (1 standard drink = 0.6 oz pur e alcohol) Nutrition Answer Date Recorded Nutrition: EVOO Fat Source Unknown 01/16 Nutrition: Servings of Fruits/Vegetables per Day Not on file 01/16/2021 Dental Answer Date Recorded Dental: Regular Dentist Unknown 01/17/20 Sex and Gender Information Value Date Recorded Sex Assigned at Not on file Gender Identity Not on file Sexual Orientation Not on file Last Filed Vital Signs Vital Sign Reading Time Taken Comments Blood Pressure 133/83 01/31/2023 11:38 PM CDT Pulse 104 01/31/2023 11:38 PM CDT Temperature 36.9 ??C (98.4 ??F) 01/31/2023 9:30 PM CD T Respiratory Rate 16 01/31/2023 7:35 PM CDT Oxygen Saturation 100% 01/31/2023 11: 38 PM CDT Inhaled Oxygen Concentration - - Weight 66.6 kg (146 lb 13.2 oz) 01/31/2023 7:33 PM CDT Height - - Body Mass Index - - Plan of Treatment Not on file Procedures Procedure Name Priority Date/Time Associated Diagnosis Comments EXTI BASIC METABOLIC PANEL, S/P Routine 11/24/2022 4:39 PM INDUSTRIAL MAINTENANCE MECHANIC EXTI LIPID PANEL, S Routine 11/13/2022 4 :07 PM INDUSTRIAL MAINTENANCE MECHANIC from Last 3 Months or Most Recently Relevant to Health Maintenance Care Teams Damage Adjuster Relationship Specialty Start Date End Date Elsewhere, Pcp PCP - General Internal Medicine 01/31/23
--- OUTSIDE RECORDS SUMMARY | 2024-01-29 15:59 | XMS_ITS ---
Author Name Unknown Organization [facility] Address [address] [place] [address] Care Team Providers Care Environmental Science Technician Name Role Phone Unavailable Unavailable Unavailable Surgery Details Not on file Complications Check Surgery Details section. Procedure Estimated Blood Loss Check Surgery Details section. Procedure Findings Check Surgery Details section. Procedure Specimens Taken Check Surgery Details section.
--- OUTSIDE RECORDS SUMMARY | 2024-01-29 15:59 | XMS_ITS | Clinical Summary ---
Author Name Unknown Organization [facility] Address [address] [place] [address] Care Team Providers Care Electrical Repairer Name Role Phone Elsewhere, Pcp Primary Care Provider Unavailabl e Source Comments Patient records contain information from all sites at [facility]. For routine questions regarding patient records, call [phone] during business hours, M-F 8:00 AM - 5:00 PM Central Time. Record requests for emergency care only can be directed to [phone] at any time.[facility] Allergies No known active allergies Medications [...] Date Recorded Dental: Regular Dentist Unknown 01/17/20 21 Sex and Gender Information Value Date Recorded [...] Mass Index - - Plan of Treatment Health Maintenance Due Date Last Done Comments CT Colonography 1968 Cologuard 1968 Colonoscopy 1968 Colorectal Cancer Screening 1968 Diabetic Office Visit with F oot Exam 1968 Dilated Eye Exam 1968 FIT 1968 HIV Screening 1968 Hemoglobin A1C 1968 Hepatitis C Screening 1968 Office Visit for Blood Press ure Check / Re-check 1968 Urine Albumin 1968 Hepatitis B Vaccines (1 of 3 - 19+ 3-dose series) 1987 Pneumococcal vaccine (0-64 y ears) (2 of 2 - PCV) 01/24/2015 01/24/2014 Zoster Vaccines (2 of 2) 02/15/2019 12/21/2018 COVID-19 Vaccine (3 - 2022-2 4 season) 2023 01/15/2021, 12/25/2020 Depression Screening (Annual PHQ-2) 10/05/2023 Lipid (Cholesterol) Screening 11/13/2023 11/13/2022 Creatinine Level (Kidney Fun ction Test) 11/24/2023 11/24/2022, 11/13/2022, 09/10/2020 DTaP,Tdap,and Td Vaccines (4 - Td or Tdap) 12/21/2028 12/21/2018, 10/26/2014, 10/20/2008 Influenza Vaccine Completed 06/25/2023, , 06/27/2021, Additional history exists Procedures Procedure Name Priority Date/Time Associated Diagnosis Comments EXTI BASIC METABOLIC PANEL, S/P Routine 11/24/2022 4:39 PM COUNTY PROGRAM TECHNICIAN EXTI LIPID PANEL, S Routine 11/13/2022 4 :07 PM COUNTY PROGRAM TECHNICIAN from Last 3 Months or Most Recently Relevant to Health Maintenance Care Teams Electrical Repairer Relationship Specialty Start Date End Date Elsewhere, Pcp PCP - General Internal Medicine 01/31/23
--- OUTSIDE RECORDS SUMMARY | 2024-01-29 16:00 | XMS_ITS | Referral Summary ---
Author Name Unknown Organization [facility] Address [address] [place] [id number] Care Team Providers Care Position Classifier Name Role Phone No Ref-Primary, Physician Primary Care Provider Allergies No known active allergies Medications Medication Sig Dispensed Refills Start Date End Date Status glipiZIDE (GLUCOTROL) 5 MG tablet Take 5 mg by mouth 2 times daily (before meals) Active metFORMIN (GLUCOPHAGE) 1000 MG tablet Take 1,000 mg by mouth 2 times daily (with meals) Active tamsulosin (FLOMAX) 0.4 MG capsule Take 0.4 mg by mouth daily Active pregabalin (LYRICA) 75 MG capsule Take 75 mg by mouth 2 times daily Active DULoxetine (CYMBALTA) 30 MG capsule Take 60 mg by mouth 2 times daily Active acetaminophen (TYLENOL) 325 MG tabletIndications:Be nign prostatic hyperplasia with urinary obstruction Take 2 tablets (650 mg) by mouth every 4 hours as needed for other (mild pain) 100 tablet 09/15/2023 Active celecoxib (CELEBREX) 200 MG capsuleIndications:B enign prostatic hyperplasia with urinary obstruction Take 1 capsule (200 mg) by mouth daily for 14 days Do not take within 6 hours of ibuprofen (MOTRIN, ADVIL) or ketorolac (TORADOL) if prescribed. 14 capsule 09/15/2023 Active Active Problems Problem Noted Date Diagnosed Date Benign prostatic hyperplasia with lower urinary tract symptoms 09/14/2023 Social History Tobacco Use Types Packs/Day Years Used Date Smoking Tobacco: Never Smokeless Tobacco: Never Tobacco Cessation:Counseling Given: Not Answered Alcohol Use Standard Drinks/Week Comments Not Currently 0 (1 standard drink = 0.6 oz pur e alcohol) few years Adolescent Education Answer Date Record ed Getting School Help Needed Not on file 06/27 Sex and Gender Information Value Date Recorded Sex Assigned at Not on file Gender Identity Not on file Sexual Orientation Not on file Last Filed Vital Signs Vital Sign Reading Time Taken Comments Blood Pressure 115/73 09/15/2023 7:36 AM NUT GRADER Pulse 77 09/15/2023 7:36 AM NUT GRADER Temperature 36.9 ??C (98.5 ??F) 09/15/2023 7:36 AM CS T Respiratory Rate 16 09/15/2023 7:36 AM NUT GRADER Oxygen Saturation 100% 09/15/2023 7:36 AM NUT GRADER Inhaled Oxygen Concentration - - Weight 63.5 kg (140 lb) 09/14/2023 10:40 AM NUT GRADER Height 154.9 cm (5' 1) 09/14/2023 10:40 AM NUT GRADER Body Mass Index 26.45 09/14/2023 10:40 AM NUT GRADER Plan of Treatment Not on file Medical Devices Implanted Type Area Clinical Nurse Reviewer Device Identifier Shelf Expiration Date Model / Serial / Lot Atrion Inflation Implanted:Qty: 1 on 05/08/2023 by Vern Bangura MD at [facility] N/A: Urethra 12/02/2025 [id number] / [id number] Procedures Procedure Name Priority Date/Time Associated Diagnosis Comments GLUCOSE BY METER Routine 09/15/2023 6:15 AM NUT GRADER from Last 3 Months or Most Recently Relevant to Health Maintenance Results * (ABNORMAL) Glucose by meter (09/15/2023 6:15 AM NUT GRADER) GLUCOSE BY METER POCT 117(H) 70 - 99 mg/dL 09/15/2023 6:21 AM NUT GRADER LABORATORY POC Blood, Capillary BLOOD SPECIMEN / Unknown 09/15/2023 6:15 AM NUT GRADER 09/15/2023 6:21 AM NUT GRADER Vern Bangura MD LAB - BEAKER POCT LABORATORY POC [facility] [address], [address] [place] [address], [facility] [phone] from Last 3 Months or Most Recently Relevant to Health Maintenance Advance Directives For more information, please contact: [phone] * Full Code (Latest Code Status on File) Date Activated Date Inactivated Comments 09/14/2023 4:21 PM 09/15/2023 6:02 PM All basic and advanced life-sustaining interventions are performed as appropriate Question Answer Comments Code status determined by: Discussion with brent crystal/ legal decision maker Care Teams Position Classifier Relationship Specialty Start Date End Date No Ref-Primary, Physician PCP - General 05/08/23
--- OUTSIDE RECORDS SUMMARY | 2024-01-29 16:00 | XMS_ITS | Clinical Summary ---
Author Name Unknown Organization [facility] Address [address] [place] [address] Care Team Providers Care Filter Assembler Name Role Phone No Ref-Primary, Physician Primary [...] Comments Blood Pressure 115/73 09/15/2023 7:36 AM CABLE TOWER OPERATOR Pulse 77 09/15/2023 7:36 AM CABLE TOWER OPERATOR Temperature 36.9 ??C (98.5 ??F) 09/15/2023 7:36 AM CS T Respiratory Rate 16 09/15/2023 7:36 AM CABLE TOWER OPERATOR Oxygen Saturation 100% 09/15/2023 7:36 AM CABLE TOWER OPERATOR Inhaled Oxygen Concentration - - Weight 63.5 kg (140 lb) 09/14/2023 10:40 AM CABLE TOWER OPERATOR Height 154.9 cm (5' 1) 09/14/2023 10:40 AM CABLE TOWER OPERATOR Body Mass Index 26.45 09/14/2023 10:40 AM CABLE TOWER OPERATOR Plan of Treatment Health Maintenance Due Date Last Done Comments ADVANCE CARE PLANNING 1968 ANNUAL REVIEW OF HM ORDERS 1968 CT COLONOGRAPHY 1968 FIT 1968 FLEX SIG 1968 YEARLY PREVENTIVE VISIT 1968 sDNA (Cologuard) 1968 COLONOSCOPY 1978 COLORECTAL CANCER SCREENING 1978 HIV SCREENING 1983 HEPATITIS C SCREENING 1986 HEPATITIS B IMMUNIZATION (1 of 3 - 19+ 3-dose series) 1987 LIPID 2008 ZOSTER IMMUNIZATION (2 of 2) 02/15/2019 12/21/2018 COVID-19 Vaccine (3 - 2022- season) 2023 01/15/2021, 01/15/2021, 12/25/2020 INFLUENZA VACCINE (#1) 2023 , 06/26/2022, 06/27/2021, Additional history exists PHQ-2 (once per calendar year) 2023 GLUCOSE 09/15/2026 09/15/2023, 09/04, 09/15/2023, Additional history exists DTAP/TDAP/TD IMMUNIZATION (5 - Td or Tdap) 12/21/2028 12/21/2018, 12/21/2018, 10/26/2014, Additional history exists Pneumococcal Vaccine: Pediatrics (0 to 5 Years) and At-Risk Patients (6 to 64 Years) Aged Out 01/24/2014 No longer eligible based on patient's age to complete this topic HPV IMMUNIZATION Aged Out No longer e ligible based on patient's age to complete this topic IPV IMMUNIZATION Aged Out No longer e ligible based on patient's age to complete this topic MENINGITIS IMMUNIZATION Aged Out No l onger eligible based on patient's age to complete this topic RSV MONOCLONAL ANTIBODY Aged Out No l onger eligible based on patient's age to complete this topic Medical Devices Implanted Type Area Pipe Smoking Machine Offbearer Device Identifier Shelf Expiration Date Model / Serial / Lot Atrion Inflation Implanted:Qty: 1 on 05/08/2023 by Vern Bangura MD at [facility] N/A: Urethra 12/02/2025 [id number] / [id number] Procedures Procedure Name Priority Date/Time Associated Diagnosis Comments GLUCOSE BY METER Routine 09/15/2023 6:15 AM CABLE TOWER OPERATOR from Last 3 Months or Most Recently Relevant to Health Maintenance Results * (ABNORMAL) Glucose by meter (09/15/2023 6:15 AM CABLE TOWER OPERATOR) GLUCOSE BY METER POCT 117(H) 70 - 99 mg/dL 09/15/2023 6:21 AM CABLE TOWER OPERATOR LABORATORY POC Blood, Capillary BLOOD SPECIMEN / Unknown 09/15/2023 6:15 AM CABLE TOWER OPERATOR 09/15/2023 6:21 AM CABLE TOWER OPERATOR Vern Bangura MD [facility] POCT LABORATORY POC [facility] [address] floor, [address] [place] [address], [facility] [phone] from Last 3 Months or Most Recently Relevant to Health Maintenance Advance Directives For more information, please contact: [phone] * Full Code (Latest Code Status on File) Date Activated Date Inactivated Comments 09/14/2023 4:21 PM 09/15/2023 6:02 PM All basic and advanced life-sustaining interventions are performed as appropriate Question Answer Comments Code status determined by: Discussion with patie nt/ legal decision maker Care Teams Filter Assembler Relationship Specialty Start Date End Date No Ref-Primary, Physician PCP - General 05/08/23
--- OUTSIDE RECORDS SUMMARY | 2024-01-29 16:00 | XMS_ITS | Clinical Summary ---
Author Name Unknown Organization [facility] Address [place], [place] [address] Care Team Providers Care Biofuels Engineering Manager Name Role Phone April Gaxiola DO Primary Care Provider [phone] Allergies No known active allergies Medications Medication Sig Dispensed Refills Start Date End Date Status tamsulosin (FLOMAX) 0.4 mg capsuleIndications: Benign prostatic hyperplasia with weak urinary stream Take 1 Capsule (0.4 mg) by mouth once daily after a meal. 90 Capsule 01/20/2022 Active trimethoprim-sulfam ethoxazole, 160-800 mg, (BACTRIM DS, SEPTRA DS) tabIndications:Pers onal history of urethral stricture,Self-cath eterizes urinary bladder As needed - take 1 pill after catheterization 50 Tablet 1 06/06/2022 Active Catheter 14 FrIndications:ureth ral stricture Cure Catheter 3 Each 10/09/2022 Active lancetsIndications: Type 2 diabetes mellitus without complication, with long-term current use of insulin (HC) Test 1 times per day. 100 Each 10/24/2022 Active Contour Next Meter TEST 1 TIMES PER DAY. 10/24/2022 Active rosuvastatin (CRESTOR) 10 mg tabletIndications:M ixed hyperlipidemia Take 1 Tablet (10 mg) by mouth at bedtime. 90 Tablet 3 11/17/2022 Active glipiZIDE extended-release (GLUCOTROL XL) 5 mg Extended-Release tabletIndications:T ype 2 diabetes mellitus with hyperglycemia, without long-term current use of insulin (HC) Take 1 Tablet (5 mg) by mouth once daily before a meal. 90 Tablet 3 12/26/2022 Active metFORMIN (GLUCOPHAGE) 500 mg tabletIndications:T ype 2 diabetes mellitus with hyperglycemia, without long-term current use of insulin (HC) Take 2 Tablets (1,000 mg) by mouth two times daily with meals. 360 Tablet 3 12/26/2022 Active oxyCODONE-acetamino phen (PERCOCET) 5-325 mg per tabletIndications:L umbar back pain with radiculopathy affecting left lower extremity,Acute pain of right knee Take 1-2 Tablets by mouth every 6 hours if needed for Pain. Max acetaminophen dose: 4000mg in 24 hrs. 5 Tablet 01/05/2023 Active HYDROcodone-acetami nophen (NORCO) 5-325 mg per tablet Take 1 Tablet by mouth every 4 hours if needed. 01/08/2023 Active blood sugar diagnostic (Blood Glucose Test) stripIndications:Ty pe 2 diabetes mellitus without complication, with long-term current use of insulin (HC) Test 2 times per day. 200 Each 3 04/28/2023 Active Active Problems Problem Noted Date Diagnosed Date Type 2 diabetes mellitus wit h hyperglycemia, without long-term current use of insulin 12/16/2022 Hypospadias 11/12/2011 Personal history of urethral stricture 2 Immunizations Name Administration Dates Next Due AMB Influenza, IIV3 (Age >=3 years)(Flu Clinic Only) 06/22/2013,07/19/2011,07/24/2010 COVID-19 vaccine (Shoes4you [employer] 30mcg/0.3mL) PF, MDV 01/15/2021,12/25/2020 Influenza A (H1N1), Inactivated 09/21/2009 Influenza, IIV3 (Age >=3 years) 10/26/2014,06/09 Influenza, IIV4 07/01/2018 Influenza, IIV4 (=>6mos) MDV 06/28/2020, 06/29/2019,07/12/2015,2013 Influenza, Injectable, Mdck, Quadrivalent, W/preservative 06/26/2022,06/27/2021 Pneumococcal Poly,23-Valent (Pneumovax) 01/24/2014 TD, UNSPECIFIED 12/21/2018 Tdap 10/26/2014,10/20/2008 Zoster (Shingrix-RZV, recombinant) 12/21/2018 Family History Medical History Relation Name Comments Diabetes Father Diabetes Mother Relation Name Status Comments Father Alive Mother Social History Tobacco Use Types Packs/Day Years Used Date Smoking Tobacco: Former Cigarettes Smokeless Tobacco: Never Tobacco Cessation:Counseling Given: Yes Comments:3 cigarettes a day for 25 years quit 1987 Alcohol Use Standard Drinks/Week Comments Not Currently 0 (1 standard drink = 0.6 oz pur e alcohol) PHQ-2 Answer Date Recorded PHQ-2 TOTAL SCORE 0 10/23/2022 Social Connections Answer Date Recorded Frequency of Communication with Friends and Fami ly Not on file 09/25/2021 Financial Resource Strain Answer Date R ecorded Difficulty of Paying Living Expenses Not on file 09/25/2021 Difficulty of Paying Living Expenses Not on file 09/25/2021 Sex and Gender Information Value Date Recorded Sex Assigned at Not on file Gender Identity Not on file Sexual Orientation Not on file Obstetrics History Last Filed Vital Signs Vital Sign Reading Time Taken Comments Blood Pressure 136/85 01/21/2023 9:07 AM CDT Pulse 102 01/21/2023 9:07 AM CDT Temperature 36.7 ??C (98.1 ??F) 11/13/2021 4:39 PM CS T Respiratory Rate 18 04/22/2011 3:28 PM CDT Oxygen Saturation 100% 01/21/2023 9:07 AM CDT Inhaled Oxygen Concentration - - Weight 67.3 kg (148 lb 6.4 oz) 01/21/2023 9:07 A M CDT Height 160 cm (5' 3) 12/16/2022 3:56 PM CDT Body Mass Index 26.29 12/16/2022 3:56 PM CDT Plan of Treatment Health Maintenance Due Date Last Done Comments Hepatitis B series for Diabe gunnar (1 of 3 - 19+ 3-dose series) 1987 Colonoscopy through age 75 2013 Pneumococcal series for age 6-64 (2 of 2 - PCV) 01/24/2015 01/24/2014 Zoster (shingles) series for age 50+ (2 of 2) 02/15/2019 12/21/2018 COVID-19 vaccine series (3 - 2022-24 season) 2023 01/15/2021, 12/25/2020 Depression screening for age 12+ 10/24/2023 10/24/2022, 10/24/2022, 10/24/2022, Additional history exists BMI (ht and wt on same day) for age 18+ 12/17/2023 12/16/2022, 11/13/2021, 01/23/2021, Additional history exists Influenza for age 50-64 06/05/2024 06/26/20, 06/27/2021, 06/28/2020, Additional history exists Lipids for age 45-75 11/13/2027 11/13/2022, 10/20/19 09 Tetanus booster 12/21/2028 12/21/2018, 10/06, 10/20/2008 Tdap Completed 10/26/2014, 10/20/2008 HIV for age 15-65 Completed 11/24/2022 Hepatitis C screening for ag e 18-79 Completed 11/24/2022 Procedures Procedure Name Priority Date/Time Associated Diagnosis Comments LC HIV-1/O/2, 4TH GENERATION Routine 11/24/2022 4:39 PM MUCK OPERATOR Screening for HIV (human immunodeficiency virus) LC HCV ANTIBODY RFX TO QUANT PCR Routine 11/24/2022 4:39 PM MUCK OPERATOR Need for hepatitis C screening test LC LIPID PANEL Routine 11/13/2022 4:07 PM MUCK OPERATOR Type 2 diabetes mellitus without complication, with long-term current use of insulin (HC) from Last 3 Months or Most Recently Relevant to Health Maintenance Results * LC HCV ANTIBODY RFX TO QUANT PCR (11/24/2022 4:39 PM MUCK OPERATOR) HCV Ab Non Reactive Non Reactive 11/28/2022 4:08 AM MUCK OPERATOR [facility] Blood BLOOD SPECIMEN / Unknown Venipuncture / Unknown 11/24/2022 4:39 PM MUCK OPERATOR 11/24/2022 4:39 PM MUCK OPERATOR Narrative [facility] - 11/28/2022 4:08 AM MUCK OPERATOR Performed at: ??01 - [address] ??[id number] Mail Order Biller: Willy Pearson MD, Phone: ??[phone] April Bagleyra [facility] Performing Organization Address City/[facility]/ZIP Co de Phone Number [facility] (CET) [address] [place] [address], * LC HIV-1/O/2, 4TH GENERATION (11/24/2022 4:39 PM MUCK OPERATOR) Pathologist [facility] HIV Scr 4th Gen Non Reactive Non Reactive 11/27/2022 1:09 PM MUCK OPERATOR [facility] (CET) Comment: HIV Negative HIV-1/HIV-2 antibodies and HIV-1 p24 antigen were NOT detected. There is no laboratory evidence of HIV infection. Blood BLOOD SPECIMEN / Unknown Venipuncture / Unknown 11/24/2022 4:39 PM MUCK OPERATOR 11/24/2022 4:39 PM MUCK OPERATOR Narrative [facility] ([facility]ET) - 11/27/2022 1:09 PM MUCK OPERATOR Performed at: ??01 - [address] ??[id number] Mail Order Biller: Willy Pearson MD, Phone: ??[phone] April Bagleyra [facility] Performing Organization Address [facility] Co de Phone Number [facility] (CET) [address] [place] [address], * (ABNORMAL) LC LIPID PANEL (11/13/2022 4:07 PM MUCK OPERATOR) Pathologist [facility] Cholesterol, Total 257(H) 100 - 199 mg/dL 11/15/2022 11:[address] [facility] (CET) Triglycerides 306(H) 0 - 149 mg/dL 11/15/2022 11:[address] [facility] (CET) HDL Cholesterol 58 >39 mg/dL 11:[address] [facility] (CET) VLDL Cholesterol Chon 55(H) 5 - 40 mg/dL 11/15/2022 11:08 AM MUCK OPERATOR [facility] LDL Chol Calc ([facility]) 144(H) 0 - 99 mg/dL 11/15/2022 11:08 AM [facility] ([facility]) Blood BLOOD SPECIMEN / Unknown Venipuncture / Unknown 11/13/2022 4:07 PM MUCK OPERATOR 11/13/2022 4:07 PM MUCK OPERATOR Narrative [facility] ([facility]) - 11/15/2022 11:08 AM MUCK OPERATOR Performed at: ??01 - [facility] [place], [place] ??[id number] Mail Order Biller: Willy Pearson MD, Phone: ??[phone] April Gaxiola DO SEND OUTS [facility] ([facility]) [address] from Last 3 Months or Most Recently Relevant to Health Maintenance Care Teams Biofuels Engineering Manager Relationship Specialty Start Date End Date April Gaxiola DO [address] [place] [address] PCP - General Family Practice 11/13/22
== END 2024-01-29 15:58 | disposition home or self-care (01) ==
PROVIDERS: PCP Family Medicine; Visit Provider Family Medicine
DX: E11.9 Type 2 diabetes mellitus without complications (principal)
CPT/HCPCS: 80048; 80061

== ENCOUNTER 2024-07-25 17:20 | Outpatient (CLI) | payer BC, SELFPAY ==
--- OUTSIDE RECORDS SUMMARY | 2024-07-25 17:23 | XMS_ITS | Clinical Summary ---
Author Organization [facility] Address [address] [place] [address] Care Team Providers Care Communications Technician Name Role Phone Elsewhere, Pcp Primary Care Provider Unavailabl e Source Comments Patient records contain information from all sites at [facility]. For routine questions regarding patient records, call [phone] during business hours, M-F 8:00 AM - 5:00 PM Central Time. Record requests for emergency care only can be directed to [phone] at any time.[facility] Allergies No known active allergies Medications metFORMIN (GLUCOPHAGE) 500 mg tablet Take 1,000 mg by mouth. 12/27/19 23 Active glipiZIDE (GLUCOTROL XL) 5 mg 24 hr tablet Take 5 mg by mouth. 12/27/19 23 Active sulfamethoxazo le-trimethopri m (BACTRIM DS) 800-160 mg per tablet As needed - take 1 pill after catheterization 06/06/20 22 Active tamsulosin (FLOMAX) 0.4 mg 24 hr capsule Take 0.4 mg by mouth. 01/21/20 22 Active cyclobenzaprin e (FLEXERIL) 1.25 mg tablet Take 10 mg by mouth. 11/12/19 23 Active cyclobenzaprin e (FLEXERIL) 10 mg tablet Take 1 tablet (10 mg total) by mouth 3 (three) times a day as needed for muscle spasms for up to 10 days. 20 tablet 02/02/20 23 Active Active Problems Problem Noted Date Diagnosed [...] Recorded Sex Assigned at Not on file Legal Sex Male 12:37 PM CDT Gender Identity Not on file Sexual Orientation [...] Exam 1968 FIT 1968 HIV Screening 1968 Hepatitis C Screening 1968 Office Visit for Blood Press ure Check / Re-check 1968 Urine Albumin 1968 Hepatitis B Vaccines (1 of 3 - 19+ 3-dose series) 1987 Pneumococcal vaccine (0-64 y ears) (2 of 2 - PCV) 01/24/2015 01/24/2014 Zoster Vaccines (2 of 2) 02/15/2019 12/21/2018 Hemoglobin A1C 05/13/2023 11/13/2022 Depression Screening (Annual PHQ-2) 10/05/2023 Lipid (Cholesterol) Screening 11/13/2023 11/13/2022 Creatinine Level (Kidney Fun ction Test) 11/24/2023 11/24/2022, 11/13/2022, 09/10/2020 COVID-19 Vaccine (3 - 2023-2 5 season) 2024 01/15/2021, 12/25/2020 Influenza Vaccine (#1) 2024 , 06/26/2022, 06/27/2021, Additional history exists DTaP,Tdap,and Td Vaccines (4 - Td or Tdap) 12/21/2028 12/21/2018, 10/26/2014, 10/20/2008 Insurance [facility] Care Teams Communications Technician Relationship Specialty Start Date End Date Elsewhere, Pcp PCP - General Internal Medicine 01/31/23
--- OUTSIDE RECORDS SUMMARY | 2024-07-25 17:23 | XMS_ITS ---
Author Organization [facility] Address [address] [place] [address] Care Team Providers Care Slitting Machine Feeder Name Role Phone Unavailable Unavailable Unavailable Surgery Details Not on file Complications Check Surgery Details section. Procedure Estimated Blood Loss Check Surgery Details section. Procedure Findings Check Surgery Details section. Procedure Specimens Taken Check Surgery Details section.
--- OUTSIDE RECORDS SUMMARY | 2024-07-25 17:23 | XMS_ITS | Referral Summary ---
Author Organization [facility] Address [address] [place] [address] Care Team Providers Care Distribution System Operator Name Role Phone Elsewhere, Pcp Primary Care Provider Unavailabl e Source Comments Patient records contain information from all sites at [facility]. For routine questions regarding patient records, call [phone] during business hours, M-F 8:00 AM - 5:00 PM Central Time. Record requests for emergency care only can be directed to [phone] at any time.[facility] Allergies No known active allergies Medications metFORMIN [...] - Plan of Treatment Not on file Insurance [facility] [place] [address] Care Teams Distribution System Operator Relationship Specialty Start Date End Date Elsewhere, Pcp PCP - General Internal Medicine 01/31/23
--- OUTSIDE RECORDS SUMMARY | 2024-07-25 17:24 | XMS_ITS | Clinical Summary ---
Author Organization [facility] Address [address] [place] [address] Care Team Providers Care Damage Prevention Coordinator Name Role Phone No Ref-Primary, Physician Primary [...] Comments Blood Pressure 115/73 09/15/2023 7:36 AM DYNAMOMETER TESTER ENGINE Pulse 77 09/15/2023 7:36 AM DYNAMOMETER TESTER ENGINE Temperature 36.9 ??C (98.5 ??F) 09/15/2023 7:36 AM CS T Respiratory Rate 16 09/15/2023 7:36 AM DYNAMOMETER TESTER ENGINE Oxygen Saturation 100% 09/15/2023 7:36 AM DYNAMOMETER TESTER ENGINE Inhaled Oxygen Concentration - - Weight 63.5 kg (140 lb) 09/14/2023 10:40 AM DYNAMOMETER TESTER ENGINE Height 154.9 cm (5' 1) 09/14/2023 10:40 AM DYNAMOMETER TESTER ENGINE Body Mass Index 26.45 09/14/2023 10:40 AM DYNAMOMETER TESTER ENGINE Plan of Treatment Health Maintenance Due Date [...] ZOSTER IMMUNIZATION (2 of 2) 02/15/2019 12/21/2018 PHQ-2 (once per calendar year) 2023 COVID-19 Vaccine ( season) 2024 01/15/2021, 01/15/2021, 12/25/2020 INFLUENZA VACCINE (#1) 2024 2, 06/26/2022, 06/27/2021, Additional history exists GLUCOSE 09/15/2026 09/15/2023, 09/04, 09/15/2023, Additional history exists DTAP/TDAP/TD IMMUNIZATION (5 - Td or Tdap) 12/21/2028 12/21/2018, 12/21/2018, 10/26/2014, Additional history exists RSV VACCINE (1 - 1-dose 75+ series) 2043 Pneumococcal Vaccine: Pediatrics (0 to 5 Years) [...] this topic Medical Devices Implanted Type Area Sorority Supervisor Device Identifier Shelf Expiration Date Model / Serial / Lot Atrion Inflation Implanted:Qty: 1 on 05/08/2023 by Vern Bangura MD at [facility] N/A: Urethra 12/02/2025 [id number] / [id number] / [id number] Procedures Procedure Name Priority Date/Time Associated Diagnosis Comments GLUCOSE BY METER Routine 09/15/2023 6:15 AM DYNAMOMETER TESTER ENGINE from Last 3 Months or Most Recently Relevant to Health Maintenance Results * (ABNORMAL) Glucose by meter (09/15/2023 6:15 AM DYNAMOMETER TESTER ENGINE) GLUCOSE BY METER POCT 117(H) 70 - 99 mg/dL 09/15/2023 6:21 AM DYNAMOMETER TESTER ENGINE LABORATORY POC Blood, Capillary BLOOD SPECIMEN / Unknown 09/15/2023 6:15 AM DYNAMOMETER TESTER ENGINE 09/15/2023 6:21 AM DYNAMOMETER TESTER ENGINE Vern Bangura MD LAB - [facility] POCT LABORATORY POC [facility] Acute Care Lab [address], [address] [place] [address], [place] [phone] from Last 3 Months or Most Recently Relevant to Health Maintenance Advance Directives For more information, please contact: [phone] * Full Code (Latest Code Status on File) Date Activated Date Inactivated Comments 09/14/2023 4:21 PM 09/15/2023 6:02 PM All basic and advanced life-sustaining interventions are performed as appropriate Question Answer Comments Code status determined by: Discussion with sherrye nt/ legal decision maker Care Teams Damage Prevention Coordinator Relationship Specialty Start Date End Date No Ref-Primary, Physician PCP - General 05/08/23
--- OUTSIDE RECORDS SUMMARY | 2024-07-25 17:24 | XMS_ITS | Data Portability ---
Author Organization [facility] Address [address] [place] [address] Care Team Providers Care Research Professional Name Role Phone [facility] Primary Care Provider Assessment Encounter Date Assessment Date Assessment LastModified by Organization Details LastModified Time 03/26/2023 03/26/2023 52 year old male with history of meatal stenosis s/p meatotomy and urethral stricture. Now with slowing of stream, difficulty with self-catheter ization, and incomplete bladder emptying. Not available 03/26/2023 22:20:05 05/11/2023 05/11/2023 52 year old male with history of meatal stenosis s/p meatotomy and urethral stricture. Now with slowing of stream, difficulty with self-catheter ization, and incomplete bladder emptying. Not available 05/11/2023 08:01:28 07/08/2023 07/08/2023 52 year old male with history of meatal stenosis s/p meatotomy and urethral stricture. Now with slowing of stream, difficulty with self-catheter ization, and incomplete bladder emptying. blas Not available 07/08/2023 09:01:35 10/16/2023 10/16/2023 52 year old male with history of meatal stenosis s/p meatotomy and urethral stricture. Now with slowing of stream, difficulty with self-catheter ization, and incomplete bladder emptying. [email or web address] Not available 10/15/2023 16:18:50 Plan of Treatment Reminders Order Date Submit Date Provider Last Modified By Organization Details Last Modified Time Details Appointments None recorded. Lab None recorded. Referral None recorded. Procedures None recorded. Surgeries cystourethr oscopy, with calibration and/or dilation of urethral stricture or stenosis (SURG) 2022 023 Not available 3 09:20:54 transurethr al resection of prostate (SURG) 2022 023 Not available 3 13:32:17 Imaging None recorded. Medication Orders hydrocodone 5 mg-acetamin ophen 325 mg tablet [address], [address], 4 15:59:25 tadalafil 20 mg tablet 2023 024 [id number], [address] [place], [place], [phone], 4 16:14:57 Bactrim DS 800 mg-160 mg tablet 2023 024 [id number], [address] [place], [place], [phone], 4 16:12:46 Patient TargetsNo targets recorded. Patient Instructions Encounter Date Encounter Id Patient Instructions Last Modified By Organization Details Last Modified Time 07/08/2023 [id number] Bipolar TURP Discussion We discussed prostate (TURP) surgery and detailed that it is used to relieve moderate to severe urinary symptoms caused by an enlarged prostate, a condition known as benign prostatic hyperplasia (BPH). During prostate surgery we insert a scope through the tip of the penis into the tube that carries urine from the bladder. A electrode is passed through the scope. The electrode delivers energy that is used to vaproize the excess tissue that is blocking the urethra and preventing urine flow. Improvements in urinary symptoms from TURP surgery are noticeable right away, while it can take several weeks to months to see noticeable improvement with medications.of laser surgery can include: Temporary difficulty urinating. Patients may have trouble urinating for a few days after the procedure. Until one can urinate on his own, he will need to have a catheter. Urinary tract infection. Urinary tract infections are a possible complication after any prostate procedure. An infection is increasingly likely to occur the longer one has a catheter in place, and may require antibiotics or other treatment. Narrowing (stricture) of the urethra. Just as one can form scars on the outside of your body, you can form scars on the inside after prostate surgery. These scars can block urine flow, requiring additional treatment. Dry orgasm (retrograde ejaculation). Any prostate surgery can cause retrograde ejaculation, Retrograde ejaculation isn't harmful, and generally doesn't affect sexual pleasure. But it can interfere with your ability to father a child. This is a common long-term side effect of procedures to treat an enlarged prostate. Erectile dysfunction. There is a small risk that ablative procedures could cause erectile dysfunction. This is generally less of a risk with laser surgery compared with traditional surgery. Need for pretreatment. Some men require follow-up treatment after ablative surgery because not all of the tissue is removed or it may grow back over time. Not available 07/08/2023 18:05:40 Reason for Referral None Reported. Results Created Date Observation Date Name Description Value Unit Range Abnormal Flag Note LastModifiedBy Organization Detail LastModifiedTime 04/03/2003/26/2023 bladd er scan (PROC ) No observ ation record ed. Not Available 2022 13:29:57 05/18/2005/08/2023 XR, cysto ureth rogra m No observ ation record ed. [facility] [address] [place], [address], 07/08/2023 18:03:43 06/29/2006/27/2023 CT, abdom en + pelvi s, w/o contr ast No observ ation record ed. Not Available 2022 18:03:43 Result Notes None recorded. Procedures Surgical History Date Name Laterality Status Provider Name and Address Organization Details Recorded Time 4 Bladder Scan completed Vern Bangura MD [address] [place] [address],[address], [place], [address], [facility] 10/16/2023 15:56:07 3 Bladder Scan completed Vern Bangura MD [address] [place] [address],[address], [place], [address], [place] [facility] 07/08/2023 16:23:48 3 Fill and Pull/Voiding Trial/TOV completed Dianna Rocha [facility] 05/11/2023 10:42:44 3 Bladder Scan completed Vern Bangura MD [address] [facility],[address], [place], [address], [facility] 03/26/2023 15:52:24 Imaging Results Imaging Date Name Status LastModified by Organization Details LastModified Time 03/26/2023 bladder scan (PROC) [email or web address] [id number] Infor mation not available 05/11/2023 13:29:57 05/08/2023 XR, cystourethrogram completed [address] [facility] [place], [address], 07/08/2023 18:03:43 06/27/2023 CT, abdomen + pelvis, w/o contrast [email or web address] [id number] Information not available 07/08/2023 18:03:43 Procedure Notes None recorded. Medical Equipment None Reported. Allergies No known drug allergies Medications Name Sig Start Date Stop Date Status Note LastModified by Organization Details LastModified Time cyclobenzap rine 10 mg tablet TAKE 1/2 TO 1 TABLET BY MOUTH ONCE OR TWICE DAILY NEEDED 10/16 completed Not Available Not Available Not Available metformin 500 mg tablet TAKE TWO TABLETS BY MOUTH TWICE A DAY active Not Available Not Available No t Available prednisone 10 mg tablet 03/26 completed Not Available Not Available Not Available hydrocodone 5 mg-acetamin ophen 325 mg tablet TAKE 1 TABLET BY MOUTH EVERY 6 HOURS. 10/16 completed Not Available Not Available Not Available meloxicam 15 mg tablet TAKE 1 TABLET BY MOUTH EVERY DAY 10/16 completed Not Available Not Available Not Available phenazopyri dine 200 mg tablet TAKE ONE TABLET BY MOUTH THREE TIMES DAILY FOR 3 DAYS 10/16 completed Not Available Not Available Not Available prednisone 20 mg tablet 03/26 completed Not Available Not Available Not Available glipizide ER 5 mg tablet, extended release 24 hr TAKE ONE TABLET BY MOUTH DAILY active Not Available Not Available No t Available sulfamethox azole 800 mg-trimetho prim 160 mg tablet TAKE 1 TABLET BY MOUTH EVERY 12 HOURS active Not Available Not Available No t Available tramadol 50 mg tablet TAKE TWO TABLETS BY MOUTH TWICE A DAY FOR CHRONIC PAIN, NOT ACUTE PAIN active Not Available Not Available No t Available meloxicam 7.5 mg tablet TAKE ONE TABLET BY MOUTH TWICE A DAY 10/16 completed Not Available Not Available Not Available oxycodone-a cetaminophe n 5 mg-325 mg tablet TAKE 1-2 TABLETS BY MOUTH EVERY 6 HOURS IF NEEDED FOR PAIN. MAX ACETAMINO PHEN DOSE: 4000MG IN 24 HRS. 03/26 completed Not Available Not Available Not Available tamsulosin 0.4 mg capsule TAKE ONE CAPSULE BY MOUTH DAILY 10/16 completed Not Available Not Available Not Available gabapentin 300 mg capsule TAKE 3 CAPSULES BY MOUTH THREE TIMES DAILY active Not Available Not Available No t Available levofloxaci n 500 mg tablet TAKE ONE TABLET BY MOUTH EVERY 24 HOURS 10/16 completed Not Available Not Available Not Available metformin ER 500 mg tablet,exte nded release 24 hr TAKE TWO TABLETS(1 000MG) BY MOUTH TWICE A DAY active Not Available Not Available No t Available Microlet Lancet TEST 1 TIMES PER DAY. active Not Available Not Available No t Available oxycodone 5 mg tablet 10/16 completed Not Available Not Available Not Available rosuvastati n 10 mg tablet TAKE 1 TABLET (10 MG) BY MOUTH AT BEDTIME. 10/16 completed Not Available Not Available Not Available tadalafil 20 mg tablet TAKE 1 TABLET BY MOUTH DIRECTED active Not Available Not Available No t Available duloxetine 30 mg capsule,del ayed release TAKE ONE CAPSULE BY MOUTH ONCE DAILY FOR 2 WEEKS THEN INCREASE TO 2 CAPS ONCE DAILY active Not Available Not Available No t Available pregabalin 75 mg capsule 10/16 completed Not Available Not Available Not Available pregabalin 150 mg capsule TAKE 1 CAPSULE BY MOUTH TWICE DAILY active Not Available Not Available No t Available Contour Next Test Strips TEST 2 TIMES PER DAY. active Not Available Not Available No t Available Contour Next Meter TEST 1 TIMES PER DAY. active Not Available Not Available No t Available Vitals Date Recorded Body height Body mass index (BMI) Body weight Provider Name and Address Organization Details Last Updated DateTime 03/26/2023 154.94 cm 26.1 kg/m2 98025.75 g Vern Bangura MD [address] [place], [place] [address], [address] [place] [address] 03/26/2023 15:55:53 Date Recorded Body height Body mass index (BMI) Body weight Provider Name and Address Organization Details Last Updated DateTime 05/11/2023 154.94 cm 26.1 kg/m2 40708.75 g Stephanie Radhika [facility] 05/11/2023 10:38:26 Date Recorded Body height Body mass index (BMI) Body weight Provider Name and Address Organization Details Last Updated DateTime 07/08/2023 154.94 cm 26.1 kg/m2 76525.75 g Vern Bangura MD [address] [place] [address],[address], [address] [place] [address] 07/08/2023 16:22:45 Date Recorded Body height Body mass index (BMI) Body weight Provider Name and Address Organization Details Last Updated DateTime 10/16/2023 154.94 cm 26.1 kg/m2 67950.75 g Venr Bangura MD [address] [place] [address] 10/16/2023 15:56:43 Social History Question Answer Notes LastModified by Organizat ion Details LastModified Time Tobacco Smoking Status Never Smoker Stephanie Garrido [facility] 05/11/2023 10:38:34 What Is Your Level Of Alcohol Consumption? None [email or web address] Information not available 07/08/2023 What Is Your Level Of Caffeine Consumption? None Information not available 07/08/2023 What Was The Date Of Your Most Recent Tobacco Screening? 07/08/2023 Information not available 07/08/2023 Do You Use Any Illicit Or Recreational Drugs? No Information not available 07/08/2023 Has Tobacco Cessation Counseling Been Provided? No [email or web address] Information not available 07/08/2023 Sex: Unknown Functional Status None recorded. Mental Status None recorded. Family History Nothing Reported. Medical History Condition Response Diabetes N Sexually Transmitted Infection N Bleeding Disorder N Other N High Blood Pressure N Kidney Stones N Cancer N Depression N Lung Disease N High Cholesterol N GERD/Acid Reflux N Heart Disease N Immunizations Vaccine Type Date Status Provider Name and Address Organization Details Recorded Time Influenza, split virus, quadrivalent, preservative [facility]28[facility]2020 [facility] 11:25:35 Influenza, split virus, quadrivalent, preservative 06/29/2019 [facility] 11:25:35 Influenza, split virus, quadrivalent, preservative 07/12/2015 [facility] 11:25:35 Influenza, split virus, quadrivalent, preservative 08/03/2014 [facility] 11:25:35 Influenza, MDCK, quadrivalent, preservative 06/26/2022 [facility] 11:25:35 Influenza, MDCK, quadrivalent, preservative 06/27/2021 [facility] 11:25:35 zoster recombinant 12/21/2018 [facility] 11:25:35 COVID-19, mRNA, LNP-S, PF, 30 mcg/0.3 mL dose 12/25/2020 [facility] 11:25:35 COVID-19, mRNA, LNP-S, PF, 30 mcg/0.3 mL dose 01/15/2021 [facility] 11:25:35 pneumococcal polysaccharide PPV23 01/24/2014 [facility] 11:25:35 Td(adult) unspecified formulation 12/21/2018 [facility] 11:25:35 Tdap 10/20/2008 [facility]23 11:25:35 Tdap 10/26/2014 completed Angelita mcgraw [facility] 08/06/2023 11:25:35 Novel [id number], all formulations 09/21/2009 [facility]23 11:25:35 Influenza, split virus, trivalent, preservative 10/26/2014 [facility]23 11:25:35 Influenza, split virus, trivalent, preservative 06/09/2012 completed Angelita mcgraw, [facility] 08/06/2023 11:25:35 Influenza, split virus, trivalent, preservative 06/22/2013 completed Angelita mcgraw [facility] 08/06/2023 11:25:35 Influenza, split virus, trivalent, preservative 07/24/2010 [facility] 11:25:35 Influenza, split virus, trivalent, PF 07/19/2011 [facility] 11:25:35 Influenza, split virus, trivalent, PF 09/21/2009 [facility] 11:25:35 Influenza, split virus, quadrivalent, PF 07/01/2018 [facility] 11:25:35 Past Encounters Encounter ID Performer Location Encounter Start Date Encounter Closed Date Diagnosis/Indication Diagnosis SNOMED-CT Code Diagnosis ICD10 Code [id number] MD BRENDA Bertrand[facility] [address] [place] [id number] 03/26/2023 15:31:16 03/30/2023 14:37:09 History of urethral stricture 061324158 Z87.448 Slowing of urinary stream 51299826 R39.12 Incomplete emptying of urinary bladder 531571065 R39.14 [id number] MD BRENDA [place] [address] [place] [id number] 05/11/2023 10:23:12 05/18/2023 13:17:34 History of urethral stricture 927546380 Z87.448 Slowing of urinary stream 97632705 R39.12 Incomplete emptying of urinary bladder 315819231 R39.14 [id number] Vern Bangura MD [facility] [address] [place] [id number] 07/08/2023 15:48:19 07/14/2023 14:43:10 History of urethral stricture 160265962 Z87.448 Slowing of urinary stream 25995160 R39.12 Incomplete emptying of urinary bladder 818480364 R39.14 Dysuria 17218775 R30.0 Lower urin pan tract symptoms due to benign prostatic hypertrophy 9168556313 9101 N40.1 [id number] MD Naida [facility]rand [address] [facility] [place] [id number] 10/16/2023 15:34:52 10/19/2023 14:34:33 History of urethral stricture 764639948 Z87.448 Slowing of urinary stream 36981939 R39.12 Incomplete emptying of urinary bladder 448692797 R39.14 Dysuria 40561768 R30.0 Lower urin pan tract symptoms due to benign prostatic hypertrophy 5848179802 9101 N40.1 Recurrent urinary tract infection 486469437 N39.0 Primary er ectile dysfunction 401141612 N52.9 Health Concerns Section Related Observation LastModified by Organization Detai ls LastModified Time None Recorded Concern Status LastModified by Organization Details LastModified Time None Recorded Advance Directives Directive None Recorded Payers Encounter Date Sequence Insurance Name Policy Number Policy [place] Covered Member ID [place] Member ID Guarantor Name 03/26/2023 [place] [id number] Adis Cruz [id number] Adis Cruz 05/11/2023 1 [place] [id number] Adis Cruz [id number] Adis Cruz 07/08/2023 1 [place] [id number] Adis Cruz [id number] Adis Cruz 10/16/2023 1 [place] [id number] Adis Cruz [id number] Adis Cruz Notes Date Note Type Note Provider Name and Address Organization Details Recorded Time 03/26/2023 text/html HPI Notes: 52 yo male with H/O meatal / urethral stricture - underwent Meatotomy and dilation of urethral stricture (stricture involve up to level of bulbous urethra - per report) by Dr. Adis Hensley in [place] on 12/09/06. He currently self-caths with 14 Fr Coloplast (straight) every 2 weeks - takes Bactrim DS 1 tablet after cath. He denies UTIs or STDs. 09/10/20 - He presents today for follow-up on urethra stricture. He denies trouble passing catheter - occasional has blood on catheter - every 2 weeks. He reports difficulty with urination for 24 hours after catheterizing (has hesitancy and dysuria). Otherwise, he states his stream is okay. He . He voids every 2 hours during the day and 1-2x/night. 10/03/20 Very pleasant 52-year-old male referred to me by my partner Dr. Negron regarding urethral stricture disease. His history is detailed above. At this point it is unclear just how much of his urethra is involved. He is passing the catheter without too much trouble however he does not feel as though it empties all the way. 03/26/2023 Here for follow up history of meatal stenosis s/p meatotomy and urethral stricture disease. Patient reports increasing difficulty with self-catheterizatio n. He is concerned that his stricture has returned and that he may have an enlarged prostate. When he does urinate he reports a slowing of his stream. Seen today with his who provides some of the history and our conversation was facilitated by telephone printing plate maker service. Vern Bangura MD [address] [facility],[address], [place], [address], [facility] 03/26/2023 22:23:19 05/11/2023 text/html HPI Notes: 52 yo male with H/O meatal / urethral stricture - underwent Meatotomy and dilation of urethral stricture (stricture involve up to level of bulbous urethra - per report) by Dr. Adis Hensley in [place] on 12/09/06. He currently self-caths with 14 Fr Coloplast (straight) every 2 weeks - takes Bactrim DS 1 tablet after cath. He denies UTIs or STDs. 09/10/20 - He presents today for follow-up on urethra stricture. He denies trouble passing catheter - occasional has blood on catheter - every 2 weeks. He reports difficulty with urination for 24 hours after catheterizing (has hesitancy and dysuria). Otherwise, he states his stream is okay. He . He voids every 2 hours during the day and 1-2x/night. 10/03/20 Very pleasant 52-year-old male referred to me by my partner Dr. Negron regarding urethral stricture disease. His history is detailed above. At this point it is unclear just how much of his urethra is involved. He is passing the catheter without too much trouble however he does not feel as though it empties all the way. 03/26/2023 Here for follow up history of meatal stenosis s/p meatotomy and urethral stricture disease. Patient reports increasing difficulty with self-catheterizatio n. He is concerned that his stricture has returned and that he may have an enlarged prostate. When he does urinate he reports a slowing of his stream. Seen today with his who provides some of the history and our conversation was facilitated by telephone printing plate maker service. 05/11/2023: Here for follow up urethral stricture s/p Optilume dilation. The stricture involved the pendulous urethra to the level of the penoscrotal junction. Vern Bangura MD [address] [place] [address],[address], [place], [address], [facility] 05/11/2023 13:30:29 07/08/2023 text/html HPI Notes: 52 yo male with H/O meatal / urethral stricture - underwent Meatotomy and dilation of urethral stricture (stricture involve up to level of bulbous urethra - per report) by Dr. Adis Hensley in [place] on 12/09/06. He currently self-caths with 14 Fr Coloplast (straight) every 2 weeks - takes Bactrim DS 1 tablet after cath. He denies UTIs or STDs. 09/10/20 - He presents today for follow-up on urethra stricture. He denies trouble passing catheter - occasional has blood on catheter - every 2 weeks. He reports difficulty with urination for 24 hours after catheterizing (has hesitancy and dysuria). Otherwise, he states his stream is okay. He . He voids every 2 hours during the day and 1-2x/night. 10/03/20 Very pleasant 52-year-old male referred to me by my partner Dr. Negron regarding urethral stricture disease. His history is detailed above. At this point it is unclear just how much of his urethra is involved. He is passing the catheter without too much trouble however he does not feel as though it empties all the way. 03/26/2023 Here for follow up history of meatal stenosis s/p meatotomy and urethral stricture disease. Patient reports increasing difficulty with self-catheterizatio n. He is concerned that his stricture has returned and that he may have an enlarged prostate. When he does urinate he reports a slowing of his stream. Seen today with his who provides some of the history and our conversation was facilitated by telephone printing plate maker service. 05/11/2023: Here for follow up urethral stricture s/p Optilume dilation. The stricture involved the pendulous urethra to the level of the penoscrotal junction. 07/08/2023: Vern Bangura MD [address] [place] [address],[address], [place], [address], [facility] 07/08/2023 18:06:07 10/16/2023 text/html HPI Notes: 52 yo male with H/O meatal / urethral stricture - underwent Meatotomy and dilation of urethral stricture (stricture involve up to level of bulbous urethra - per report) by Dr. Adis Hensley in [place] on 12/09/06. He currently self-caths with 14 Fr Coloplast (straight) every 2 weeks - takes Bactrim DS 1 tablet after cath. He denies UTIs or STDs. 09/10/20 - He presents today for follow-up on urethra stricture. He denies trouble passing catheter - occasional has blood on catheter - every 2 weeks. He reports difficulty with urination for 24 hours after catheterizing (has hesitancy and dysuria). Otherwise, he states his stream is okay. He . He voids every 2 hours during the day and 1-2x/night. 10/03/20 Very pleasant 52-year-old male referred to me by my partner Dr. Negron regarding urethral stricture disease. His history is detailed above. At this point it is unclear just how much of his urethra is involved. He is passing the catheter without too much trouble however he does not feel as though it empties all the way. 03/26/2023 Here for follow up history of meatal stenosis s/p meatotomy and urethral stricture disease. Patient reports increasing difficulty with self-catheterizatio n. He is concerned that his stricture has returned and that he may have an enlarged prostate. When he does urinate he reports a slowing of his stream. Seen today with his who provides some of the history and our conversation was facilitated by telephone printing plate maker service. 05/11/2023: Here for follow up urethral stricture s/p Optilume dilation. The stricture involved the pendulous urethra to the level of the penoscrotal junction. 10/16/2022: Here for follow up history of urethral stricture, BPH with lower urinary tract symptoms. Now s/p TURP. Continues to improve following surgery. Does ask if he could have a prescription for antibiotics should the need arise he and his are all also interested in treatment options available for his erectile dysfunction he has not previously utilized any treatment. Vern aBngura MD [address] [facility],[address], [place], [address], [facility] 10/16/2023 16:29:02
--- OUTSIDE RECORDS SUMMARY | 2024-07-25 17:24 | XMS_ITS | Clinical Summary ---
Author Organization [employer] [facility] Address [place], [place] [address] Care Team Providers Care Senior Director Finance Name Role Phone April Gaxiola Primary Care Provider [phone] Allergies No known active allergies Medications Medication Sig Dispensed Refills Start Date End Date Status tamsulosin (FLOMAX) 0.4 mg capsuleIndications:B enign prostatic hyperplasia with weak urinary stream Take 1 Capsule (0.4 mg) by mouth once daily after a meal. 90 Capsule 01/20/2022 Active Catheter 14 FrIndications:urethr al stricture Cure Catheter 3 Each 10/09/2022 Active Contour Next Meter TEST 1 TIMES PER DAY. 10/24/2022 Active rosuvastatin (CRESTOR) 10 mg tabletIndications:Mi xed hyperlipidemia Take 1 Tablet (10 mg) by mouth at bedtime. 90 Tablet 3 11/17/2022 Active glipiZIDE extended-release (GLUCOTROL XL) 5 mg Extended-Release tabletIndications:Ty pe 2 diabetes mellitus with hyperglycemia, without long-term current use of insulin (HC) Take 1 Tablet (5 mg) by mouth once daily before a meal. 90 Tablet 3 12/26/2022 Active metFORMIN (GLUCOPHAGE) 500 mg tabletIndications:Ty pe 2 diabetes mellitus with hyperglycemia, without long-term current use of insulin (HC) Take 2 Tablets (1,000 mg) by mouth two times daily with meals. 360 Tablet 3 12/26/2022 Active oxyCODONE-acetaminop hen (PERCOCET) 5-325 mg per tabletIndications:Simran mbar back pain with radiculopathy affecting left lower extremity,Acute pain of right knee Take 1-2 Tablets by mouth every 6 hours if needed for Pain. Max acetaminophen dose: 4000mg in 24 hrs. 5 Tablet 01/05/2023 Active HYDROcodone-acetamin ophen (NORCO) 5-325 mg per tablet Take 1 Tablet by mouth every 4 hours if needed. 01/08/2023 Active blood sugar diagnostic (Blood Glucose Test) stripIndications:Typ e 2 diabetes mellitus without complication, with long-term current use of insulin (HC) Test 2 times per day. 200 Each 3 04/28/2023 Active lancets (Microlet Lancet)Indications:T ype 2 diabetes mellitus without complication, with long-term current use of insulin (HC) TEST 1 TIMES PER DAY. 200 Each 03/31/2024 Active trimethoprim-sulfame thoxazole, 160-800 mg, (BACTRIM DS, SEPTRA DS) tabIndications:Perso nal history of urethral stricture,Self-phil terizes urinary bladder TAKE ONE TABLET BY MOUTH NEEDED AFTER CATHETERIZATION. 50 Tablet 05/19/2024 Active Active Problems Problem Noted Date Diagnosed Date Type 2 diabetes mellitus wit h hyperglycemia, without long-term current use of insulin 12/16/2022 Hypospadias 11/12/2011 Personal history of urethral stricture 2 Encounters Date Type Department Care Team Description 05/16/[address] [facility] [address] [place] [address] April Gaxiola DO Refill Request (Trimethoprim-sulfamethox azole (160-800 Mg)) from Last 3 Months Immunizations Name Administration Dates Next Due AMB Influenza, IIV3 (Age >=3 years)(Flu Clinic Only) 06/22/2013,07/19/2011,07/24/2010 COVID-19 vaccine (Intelligent [employer] NTPeopleJam 30mcg/0.3mL) PF, MDV 01/15/2021,12/25/2020 Influenza A (H1N1), [...] Health Maintenance Due Date Last Done Comments Colonoscopy through age 75 2013 Pneumococcal series for age 6-64 (2 of 2 - PCV) 01/24/2015 01/24/2014 Zoster (shingles) series for age 50+ (2 of 2) 02/15/2019 12/21/2018 Depression screening for age 12+ 10/24/2023 10/24/2022, 10/24/2022, 10/24/2022, Additional history exists BMI (ht and wt on same day) for age 18+ 12/17/2023 12/16/2022, 11/13/2021, 01/23/2021, Additional history exists COVID-19 vaccine series (2023- season) 2024 01/15/2021, 12/25/2020 Influenza for age 50-64 06/05/2024 06/26/20, 06/27/2021, 06/28/2020, Additional history exists Lipids for age 45-75 11/13/2027 11/13/2022, 10/20/19 09 Tetanus booster 12/21/2028 12/21/2018, 10/06, 10/20/2008 Tdap Completed 10/26/2014, 10/20/2008 HIV for age 15-65 Completed 11/24/2022 Hepatitis C screening for ag e 18-79 Completed 11/24/2022 Procedures Procedure Name Priority Date/Time Associated Diagnosis Comments LC HIV-1/O/2, 4TH GENERATION Routine 11/24/2022 4:39 PM INDUSTRIAL LOCOMOTIVE OPERATOR Screening for HIV (human immunodeficiency virus) LC HCV ANTIBODY RFX TO QUANT PCR Routine 11/24/2022 4:39 PM INDUSTRIAL LOCOMOTIVE OPERATOR Need for hepatitis C screening test LC LIPID PANEL Routine 11/13/2022 4:07 PM INDUSTRIAL LOCOMOTIVE OPERATOR Type 2 diabetes mellitus without complication, with long-term current use of insulin (HC) from Last 3 Months or Most Recently Relevant to Health Maintenance Results * LC HCV ANTIBODY RFX TO QUANT PCR (11/24/2022 4:39 PM INDUSTRIAL LOCOMOTIVE OPERATOR) HCV Ab Non Reactive Non Reactive 11/28/2022 4:08 AM INDUSTRIAL LOCOMOTIVE OPERATOR [facility] FOR ESOTERIC TESTING (CET) Blood BLOOD SPECIMEN / Unknown Venipuncture / Unknown 11/24/2022 4:39 PM INDUSTRIAL LOCOMOTIVE OPERATOR 11/24/2022 4:39 PM INDUSTRIAL LOCOMOTIVE OPERATOR [facility] FOR ESOTERIC TESTING (CET) - 11/28/2022 4:08 AM INDUSTRIAL LOCOMOTIVE OPERATOR Performed at: ??[address] ??[id number] Traffic Workforce Representative: Willy Pearson MD, Phone: ??[phone] April Gaxiola LABORATORY Performing Organization Address [facility] Co de Phone Number [facility] ESOTERIC TESTING (CET) [address] [place] [address], * LC HIV-1/O/2, 4TH GENERATION (11/24/2022 4:39 PM INDUSTRIAL LOCOMOTIVE OPERATOR) Pathologist [facility] HIV Scr 4th Gen Non Reactive Non Reactive 11/27/2022 1:09 PM INDUSTRIAL LOCOMOTIVE OPERATOR [facility] ESOTERIC TESTING (CET) Comment: HIV Negative HIV-1/HIV-2 antibodies and HIV-1 p24 antigen were NOT detected. There is no laboratory evidence of HIV infection. Blood BLOOD SPECIMEN / Unknown Venipuncture / Unknown 11/24/2022 4:39 PM INDUSTRIAL LOCOMOTIVE OPERATOR 11/24/2022 4:39 PM INDUSTRIAL LOCOMOTIVE OPERATOR [facility] ESOTERIC TESTING (CET) - 11/27/2022 1:09 PM INDUSTRIAL LOCOMOTIVE OPERATOR Performed at: ??[address] ??[id number] Traffic Workforce Representative: Willy Pearson MD, Phone: ??[phone] April Gaxiola LABORATORY Performing Organization Address City/[facility]/ZIP Co de Phone Number [facility] FOR ESOTERIC TESTING (CET) [address] [place] [address], * (ABNORMAL) LC LIPID PANEL (11/13/2022 4:07 PM INDUSTRIAL LOCOMOTIVE OPERATOR) Pathologist [facility] Cholesterol, Total 257(H) 100 - 199 mg/dL 11/15/2022 11:08 AM INDUSTRIAL LOCOMOTIVE OPERATOR [facility] FOR ESOTERIC TESTING (CET) Triglycerides 306(H) 0 - 149 mg/dL 11/15/2022 11:08 AM INDUSTRIAL LOCOMOTIVE OPERATOR [facility] FOR ESOTERIC TESTING (CET) HDL Cholesterol 58 >39 mg/dL 3 11:08 AM FOR ESOTERIC TESTING (CET) VLDL Cholesterol Chon 55(H) 5 - 40 mg/dL 11/15/2022 11:08 AM [facility] ESOTERIC TESTING (CET) LDL Chol Calc (NIH) 144(H) 0 - 99 mg/dL 11/15/2022 11:08 AM [facility] ESOTERIC TESTING (CET) Blood BLOOD SPECIMEN / Unknown Venipuncture / Unknown 11/13/2022 4:07 PM INDUSTRIAL LOCOMOTIVE OPERATOR 11/13/2022 4:07 PM INDUSTRIAL LOCOMOTIVE OPERATOR Narrative [facility] FOR ESOTERIC TESTING (CET) - 11/15/2022 11:08 AM INDUSTRIAL LOCOMOTIVE OPERATOR Performed at: ??[address] - [address] ??[id number] Traffic Workforce Representative: Willy Pearson MD, Phone: ??[phone] April Gaxiola DO SEND OUTS [facility] ESOTERIC TESTING (CET) [facility] [address] from Last 3 Months or Most Recently Relevant to Health Maintenance Care Teams Senior Director Finance Relationship Specialty Start Date End Date April Gaxiola DO [address] [place] [address] PCP - General Family Practice 11/13/22
--- OUTSIDE RECORDS SUMMARY | 2024-07-25 17:24 | XMS_ITS | Referral Summary ---
Author Organization [facility] Address [address] [place] [address] Care Team Providers Care Credit Rating Inspector Name Role Phone No Ref-Primary, Physician Primary [...] Comments Blood Pressure 115/73 09/15/2023 7:36 AM NETWORK RELATIONS CONSULTANT Pulse 77 09/15/2023 7:36 AM NETWORK RELATIONS CONSULTANT Temperature 36.9 ??C (98.5 ??F) 09/15/2023 7:36 AM CS T Respiratory Rate 16 09/15/2023 7:36 AM NETWORK RELATIONS CONSULTANT Oxygen Saturation 100% 09/15/2023 7:36 AM NETWORK RELATIONS CONSULTANT Inhaled Oxygen Concentration - - Weight 63.5 kg (140 lb) 09/14/2023 10:40 AM NETWORK RELATIONS CONSULTANT Height 154.9 cm (5' 1) 09/14/2023 10:40 AM NETWORK RELATIONS CONSULTANT Body Mass Index 26.45 09/14/2023 10:40 AM NETWORK RELATIONS CONSULTANT Plan of Treatment Not on file Medical Devices Implanted Type Area Tub Attendant Device Identifier Shelf Expiration Date Model / Serial / Lot Atrion Inflation Implanted:Qty: 1 on 05/08/2023 by Vern Bangura MD at [facility] N/A: Urethra 12/02/2025 [id number] / [id number] / [id number] Procedures Procedure Name Priority Date/Time Associated Diagnosis Comments GLUCOSE BY METER Routine 09/15/2023 6:15 AM NETWORK RELATIONS CONSULTANT from Last 3 Months or Most Recently Relevant to Health Maintenance Results * (ABNORMAL) Glucose by meter (09/15/2023 6:15 AM NETWORK RELATIONS CONSULTANT) GLUCOSE BY METER POCT 117(H) 70 - 99 mg/dL 09/15/2023 6:21 AM NETWORK RELATIONS CONSULTANT LABORATORY POC Blood, Capillary BLOOD SPECIMEN / Unknown 09/15/2023 6:15 AM NETWORK RELATIONS CONSULTANT 09/15/2023 6:21 AM NETWORK RELATIONS CONSULTANT Vern Bangura MD LAB - BEAKER POCT LABORATORY POC [facility] Acute Care Lab [address] floor, [address] [place] [address], [facility] [phone] from Last 3 Months or Most Recently Relevant to Health Maintenance Advance Directives For more information, please contact: [phone] * Full Code (Latest Code Status on File) Date Activated Date Inactivated Comments 09/14/2023 4:21 PM 09/15/2023 6:02 PM All basic and advanced life-sustaining interventions are performed as appropriate Question Answer Comments Code status determined by: Discussion with brent crystal/ legal decision maker Care Teams Credit Rating Inspector Relationship Specialty Start Date End Date No Ref-Primary, Physician PCP - General 05/08/23
== END 2024-07-25 17:21 | disposition home or self-care (01) ==
PROVIDERS: PCP Family Medicine; Visit Provider Registered Nurse
DX: N30.01 Acute cystitis with hematuria (principal)
CPT/HCPCS: 80053; 87086; 87186

== ENCOUNTER 2024-08-10 15:52 | Outpatient (CLI) | payer BC, SELFPAY ==
--- OUTSIDE RECORDS SUMMARY | 2024-08-11 08:10 | XMS_ITS | Clinical Summary ---
Author Organization [employer] [facility] Address [place], [place] [address] Care Team Providers Care Colored Liquid Plastic Applier Name Role Phone April Gaxiola Primary Care Provider [phone] Allergies No known active allergies Medications Medication [...] Type Department Care Team Description 05/16/2024 Refill [facility] [address] [place] [address] Apirl Gaxiola DO Refill Request (Trimethoprim-sulfamethox azole (160-800 Mg)) from Last 3 Months Immunizations Name Administration Dates Next Due AMB Influenza, IIV3 (Age >=3 years)(Flu Clinic Only) 06/22/2013,07/19/2011,07/24/2010 COVID-19 vaccine (immoture.be NTEntrec 30mcg/0.3mL) PF, MDV 01/15/2021,12/25/2020 Influenza A (H1N1), [...] HIV-1/O/2, 4TH GENERATION Routine 11/24/2022 4:39 PM DERIVATIVES TRADER Screening for HIV (human immunodeficiency virus) LC HCV ANTIBODY RFX TO QUANT PCR Routine 11/24/2022 4:39 PM DERIVATIVES TRADER Need for hepatitis C screening test LC LIPID PANEL Routine 11/13/2022 4:07 PM DERIVATIVES TRADER Type 2 diabetes mellitus without complication, with long-term current use of insulin (HC) from Last 3 Months or Most Recently Relevant to Health Maintenance Results * LC HCV ANTIBODY RFX TO QUANT PCR (11/24/2022 4:39 PM DERIVATIVES TRADER) HCV Ab Non Reactive Non Reactive 11/28/2022 4:08 AM DERIVATIVES TRADER [facility] FOR ESOTERIC TESTING (CET) Blood BLOOD SPECIMEN / Unknown Venipuncture / Unknown 11/24/2022 4:39 PM DERIVATIVES TRADER 11/24/2022 4:39 PM DERIVATIVES TRADER [facility] FOR ESOTERIC TESTING (CET) - 11/28/2022 4:08 AM DERIVATIVES TRADER Performed at: ??[address] - [address] ??[id number] Sample Grinder: Willy Pearson MD, Phone: ??[phone] April Gaxiola LABORATORY Performing Organization Address [facility] Co de Phone Number [facility] ESOTERIC TESTING (CET) [address] [place] [address], * LC HIV-1/O/2, 4TH GENERATION (11/24/2022 4:39 PM DERIVATIVES TRADER) Pathologist [facility] HIV Scr 4th Gen Non Reactive Non Reactive 11/27/2022 1:09 PM DERIVATIVES TRADER [facility] ESOTERIC TESTING (CET) Comment: HIV Negative HIV-1/HIV-2 antibodies and HIV-1 p24 antigen were NOT detected. There is no laboratory evidence of HIV infection. Blood BLOOD SPECIMEN / Unknown Venipuncture / Unknown 11/24/2022 4:39 PM DERIVATIVES TRADER 11/24/2022 4:39 PM DERIVATIVES TRADER [facility] ESOTERIC TESTING (CET) - 11/27/2022 1:09 PM DERIVATIVES TRADER Performed at: ??[address] ??[id number] Sample Grinder: Willy Pearson MD, Phone: ??[phone] April Gaxiola LABORATORY Performing Organization Address City/[facility]/ZIP Co de Phone Number [facility] FOR ESOTERIC TESTING (CET) [address] [place] [address], * (ABNORMAL) LC LIPID PANEL (11/13/2022 4:07 PM DERIVATIVES TRADER) Pathologist [facility] Cholesterol, Total 257(H) 100 - 199 mg/dL 11/15/2022 11:[address] [facility] FOR ESOTERIC TESTING (CET) Triglycerides 306(H) 0 - 149 mg/dL 11/15/2022 11:[address] [facility] FOR ESOTERIC TESTING (CET) HDL Cholesterol 58 >39 mg/dL 3 11:08 AM [facility] FOR ESOTERIC TESTING (CET) VLDL Cholesterol Chon 55(H) 5 - 40 mg/dL 11/15/2022 11:08 AM [facility] ESOTERIC TESTING (CET) LDL Chol Calc (NIH) 144(H) 0 - 99 mg/dL 11/15/2022 11:08 AM [facility] ESOTERIC TESTING (CET) Blood BLOOD SPECIMEN / Unknown Venipuncture / Unknown 11/13/2022 4:07 PM DERIVATIVES TRADER 11/13/2022 4:07 PM DERIVATIVES TRADER Narrative [facility] FOR ESOTERIC TESTING (CET) - 11/15/2022 11:08 AM DERIVATIVES TRADER Performed at: ??01 - [address] ??[id number] Sample Grinder: Willy Pearson MD, Phone: ??[phone] April Gaxiola DO SEND OUTS [facility] ESOTERIC TESTING (CET) [facility] [address] from Last 3 Months or Most Recently Relevant to Health Maintenance Care Teams Colored Liquid Plastic Applier Relationship Specialty Start Date End Date April Gaxiola DO [address] [place] [address] PCP - General Family Practice 11/13/22
--- OUTSIDE RECORDS SUMMARY | 2024-08-11 08:10 | XMS_ITS | Referral Summary ---
Author Organization [facility] Address [address] [place] [address] Care Team Providers Care Taxicab Dispatcher Name Role Phone No Ref-Primary, Physician Primary Care Provider Allergies No known active allergies Medications glipiZIDE (GLUCOTROL) 5 MG tablet Take 5 [...] times daily Active acetaminophen (TYLENOL) 325 MG tabletIndication s:Benign prostatic hyperplasia with urinary obstruction Take 2 tablets (650 mg) by mouth every 4 hours as needed for other (mild pain) 100 tablet 3 Active celecoxib (CELEBREX) 200 MG capsuleIndicatio ns:Benign prostatic hyperplasia with urinary obstruction Take 1 capsule (200 mg) by mouth daily for 14 days Do not take within 6 hours of ibuprofen (MOTRIN, ADVIL) or ketorolac (TORADOL) if prescribed. 14 capsule 3 Active Active Problems Problem Noted Date Diagnosed [...] at Not on file Legal Sex Male 2:38 PM CDT Gender Identity Not on file Sexual Orientation Not on file Last Filed Vital Signs Vital Sign Reading Time Taken Comments Blood Pressure 115/73 09/15/2023 7:36 AM VARNISH MAKER Pulse 77 09/15/2023 7:36 AM VARNISH MAKER Temperature 36.9 ??C (98.5 ??F) 09/15/2023 7:36 AM CS T Respiratory Rate 16 09/15/2023 7:36 AM VARNISH MAKER Oxygen Saturation 100% 09/15/2023 7:36 AM VARNISH MAKER Inhaled Oxygen Concentration - - Weight 63.5 kg (140 lb) 09/14/2023 10:40 AM VARNISH MAKER Height 154.9 cm (5' 1) 09/14/2023 10:40 AM VARNISH MAKER Body Mass Index 26.45 09/14/2023 10:40 AM VARNISH MAKER Plan of Treatment Not on file Medical Devices Implanted Type Area Special Shopper Device Identifier Shelf Expiration Date Model / Serial / Lot Atrion Inflation Implanted:Qty: 1 on 05/08/2023 by Vern Bangura MD at [facility] N/A: Urethra 12/02/2025 [id number] / [id number] / [id number] Procedures Procedure Name Priority Date/Time Associated Diagnosis Comments GLUCOSE BY METER Routine 09/15/2023 6:15 AM VARNISH MAKER from Last 3 Months or Most Recently Relevant to Health Maintenance Results * (ABNORMAL) Glucose by meter (09/15/2023 6:15 AM VARNISH MAKER) [facility] GLUCOSE BY METER POCT 117(H) 70 - 99 mg/dL 09/15/2023 6:21 AM VARNISH MAKER LABORATORY POC Blood, Capillary BLOOD SPECIMEN / Unknown 09/15/2023 6:15 AM VARNISH MAKER 09/15/2023 6:21 AM VARNISH MAKER us Vern Bangura MD LAB - BEAKER POCT Final R esult LABORATORY POC [facility] [address], [address] [place] [address], [facility] [phone] from Last 3 Months or Most Recently Relevant to Health Maintenance Insurance [place] Advance Directives For more information, please contact: [phone] * Full Code (Latest Code Status on File) Date Activated Date Inactivated Comments 09/14/2023 4:21 PM 09/15/2023 6:02 PM All basic and advanced life-sustaining interventions are performed as appropriate Question Answer Comments Code status determined by: Discussion with sherrye nt/ legal decision maker Care Teams Taxicab Dispatcher Relationship Specialty Start Date End Date No Ref-Primary, Physician PCP - General 05/08/23
--- OUTSIDE RECORDS SUMMARY | 2024-08-11 08:10 | XMS_ITS | Referral Summary ---
Author Organization [facility] Address [address] [place] [address] Care Team Providers Care Lead Front Desk Agent Name Role Phone Elsewhere, Pcp Primary Care Provider Unavailabl e Source Comments Patient records contain information from all sites at [facility]. For routine questions regarding patient records, call [phone] during business hours, M-F 8:00 AM - 5:00 PM Central Time. Record requests for emergency care only can be directed to [phone] at any time.[facility] Allergies No known active allergies Medications [...] Plan of Treatment Not on file Insurance [facility] [place] [address] Care Teams Lead Front Desk Agent Relationship Specialty Start Date End Date Elsewhere, Pcp PCP - General Internal Medicine 01/31/23
--- OUTSIDE RECORDS SUMMARY | 2024-08-11 08:10 | XMS_ITS | Clinical Summary ---
Author Organization [facility] Address [address] [place] [address] Care Team Providers Care Sample Box Maker Name Role Phone Elsewhere, Pcp Primary Care Provider Unavailabl e Source Comments Patient records contain information from all sites at [facility]. For routine questions regarding patient records, call [phone] during business hours, M-F 8:00 AM - 5:00 PM Central Time. Record requests for emergency care only can be directed to [phone] at any time.[facility] Allergies No known active allergies Medications [...] Cancer Screening 1968 Diabetic Office Visit with Foot Exam 1968 Dilated Eye Exam 1968 FIT 1968 HIV Screening 1968 Hepatitis C Screening 1968 Office Visit for Blood Pressure Check / Re-check 1968 Urine Albumin 1968 Hepatitis B Vaccines (1 of 3 - 19+ 3-dose series) 1987 Pneumococcal vaccine (0-64 years) (2 of 2 - PCV) 01/24/2015 01/24/2014 Zoster Vaccines (2 of 2) 02/15/2019 12/21/2018 Hemoglobin A1C 05/13/2023 11/13/2022 Depression Screening (Annual PHQ-2) 10/05/2023 Lipid (Cholesterol) Screening 11/13/2023 11/13/2022 Creatinine Level (Kidney Function Test) 11/24/2023 11/24/2022, 11/13/2022, 09/10/2020 COVID-19 Vaccine ( season) 2024 01/15/2021, 12/25/2020 Influenza Vaccine (#1) 2024 3, 06/26/2022, 06/27/2021, Additional history exists DTaP,Tdap,and Td Vaccines (4 - Td or Tdap) 12/21/2028 12/21/2018, 10/26/2014, 10/20/2008 IPV Vaccines Aged Out No longer eligi ble based on patient's age to complete this topic Insurance [employer] Care Teams Sample Box Maker Relationship Specialty Start Date End Date Elsewhere, Pcp PCP - General Internal Medicine 01/31/23
--- OUTSIDE RECORDS SUMMARY | 2024-08-11 08:10 | XMS_ITS | Clinical Summary ---
Author Organization [facility] Address [address] [place] [address] Care Team Providers Care Internet Marketing Coordinator Name Role Phone No Ref-Primary, Physician [...] Comments Blood Pressure 115/73 09/15/2023 7:36 AM LIST OF FIRST JOB IDEAS Pulse 77 09/15/2023 7:36 AM LIST OF FIRST [employer] IDE[employer] Temperature 36.9 ??C (98.5 ??F) 09/15/2023 7:36 AM CS T Respiratory Rate 16 09/15/2023 7:36 AM LIST OF FIRST J[employer] IDEAS Oxygen Saturation 100% 09/15/2023 7:36 AM LIST OF FIRST JOB IDEAS Inhaled Oxygen Concentration - - Weight 63.5 kg (140 lb) 09/14/2023 10:40 AM LIST OF FIRST JOB IDEAS Height 154.9 cm (5' 1) 09/14/2023 10:40 AM LIST OF FIRST JOB IDEAS Body Mass Index 26.45 09/14/2023 10:40 AM LIST OF FIRST [employer]OB IDEAS Plan of Treatment Health Maintenance Due Date [...] 01/15/2021, 01/15/2021, 12/25/2020 INFLUENZA VACCINE (#1) 2024 , 06/26/2022, 06/27/2021, Additional history exists GLUCOSE 09/15/2026 [...] this topic Medical Devices Implanted Type Area Safety Professional Device Identifier Shelf Expiration Date Model / Serial / Lot Atrion Inflation Implanted:Qty: 1 on 05/08/2023 by Vern Bangura MD at [facility] N/A: Urethra 12/02/2025 [id number] / [id number] / [id number] Procedures Procedure Name Priority Date/Time Associated Diagnosis Comments GLUCOSE BY METER Routine 09/15/2023 6:15 AM LIST OF FIRST JOB IDEAS from Last 3 Months or Most Recently Relevant to Health Maintenance Results * (ABNORMAL) Glucose by meter (09/15/2023 6:15 AM LIST OF FIRST JOB IDEAS) GLUCOSE BY METER POCT 117(H) 70 - 99 mg/dL 09/15/2023 6:21 AM LIST OF FIRST JOB IDEAS LABORATORY POC Blood, Capillary BLOOD SPECIMEN / Unknown 09/15/2023 6:15 AM LIST OF FIRST JOB IDEAS 09/15/2023 6:21 AM LIST OF FIRST JOB IDEAS us Vern Bangura MD LAB - BEAKER POCT Final R esult LABORATORY POC [facility] Acute Care Lab [address], [address] [place] [address], [place] [phone] from Last 3 Months or Most Recently Relevant to Health Maintenance Insurance [place] Member Subscriber Plan / Payer (Ef fective 2016-Present) Name:Adis Cruz Relation to Subscriber:Self Name:Adis Cruz Payer ID:[id number] (NAIC) Type:Indemnity Address: [place] [id number] [place] Advance Directives For more information, please contact: [phone] * Full Code (Latest Code Status on File) Date Activated Date Inactivated Comments 09/14/2023 4:21 PM 09/15/2023 6:02 PM All basic and advanced life-sustaining interventions are performed as appropriate Question Answer Comments Code status determined by: Discussion with sherrye nt/ legal decision maker Care Teams Internet Marketing Coordinator Relationship Specialty Start Date End Date No Ref-Primary, Physician PCP - General 05/08/23
--- OUTSIDE RECORDS SUMMARY | 2024-08-11 08:10 | XMS_ITS ---
Author Organization [facility] Address [address] [place] [address] Care Team Providers Care Fire Equipment Inspector Name Role Phone Unavailable Unavailable Unavailable Surgery Details Not on file Complications Check Surgery Details section. Procedure Estimated Blood Loss Check Surgery Details section. Procedure Findings Check Surgery Details section. Procedure Specimens Taken Check Surgery Details section.
== END 2024-08-10 15:53 | disposition home or self-care (01) ==
LOC: NFLDREF 08-11 08:08
PROVIDERS: PCP Family Medicine; Referring Provider Family Medicine; Visit Provider Registered Nurse
DX: N39.0 Urinary tract infection, site not specified (principal); A49.8 Other bacterial infections of unspecified site; Z16.12 Extended spectrum beta lactamase (ESBL) resistance
CPT/HCPCS: 87086; 87186

== ENCOUNTER 2024-08-22 16:02 | Outpatient (CLI) | payer BC, SELFPAY ==
--- OUTSIDE RECORDS SUMMARY | 2024-08-22 16:04 | XMS_ITS | Clinical Summary ---
Author Organization [facility] Address [address] [place] [address] Care Team Providers Care Tie Binder Name Role Phone Elsewhere, Pcp Primary Care Provider Unavailabl e Source Comments Patient records contain information from all sites at [facility]. For routine questions regarding patient records, call [phone] during business hours, M-F 8:00 AM - 5:00 PM Central Time. Record requests for emergency care only can be directed to [phone] at any time.[facility] Allergies No known active allergies Medications [...] 104 01/31/2023 11:38 PM CDT Temperature 36.9 C (98.4 F) 01/31/2023 9:30 PM CDT Respiratory Rate 16 01/31/2023 7:35 PM CDT [...] patient's age to complete this topic Insurance [facility] Care Teams Tie Binder Relationship Specialty Start Date End Date Elsewhere, Pcp PCP - General Internal Medicine 01/31/23
--- OUTSIDE RECORDS SUMMARY | 2024-08-22 16:04 | XMS_ITS ---
Author Organization [facility] Address [address] [place] [address] Care Team Providers Care Custom Shop Worker Name Role Phone Unavailable Unavailable Unavailable Surgery Details Not on file Complications Check Surgery Details section. Procedure Estimated Blood Loss Check Surgery Details section. Procedure Findings Check Surgery Details section. Procedure Specimens Taken Check Surgery Details section.
--- OUTSIDE RECORDS SUMMARY | 2024-08-22 16:04 | XMS_ITS | Referral Summary ---
Author Organization [facility] Address [address] [place] [address] Care Team Providers Care Wedding Florist Name Role Phone No Ref-Primary, Physician Primary [...] Comments Blood Pressure 115/73 09/15/2023 7:36 AM YOUTH DEVELOPMENT PROFESSIONAL Pulse 77 09/15/2023 7:36 AM YOUTH DEVELOPMENT PROFESSIONAL Temperature 36.9 C (98.5 F) 09/15/2023 7:36 AM YOUTH DEVELOPMENT PROFESSIONAL Respiratory Rate 16 09/15/2023 7:36 AM YOUTH DEVELOPMENT PROFESSIONAL Oxygen Saturation 100% 09/15/2023 7:36 AM YOUTH DEVELOPMENT PROFESSIONAL Inhaled Oxygen Concentration - - Weight 63.5 kg (140 lb) 09/14/2023 10:40 AM YOUTH DEVELOPMENT PROFESSIONAL Height 154.9 cm (5' 1) 09/14/2023 10:40 AM YOUTH DEVELOPMENT PROFESSIONAL Body Mass Index 26.45 09/14/2023 10:40 AM YOUTH DEVELOPMENT PROFESSIONAL Plan of Treatment Not on file Medical Devices Implanted Type Area Carry Out Clerk And Shelf Stocker Device Identifier Shelf Expiration Date Model / Serial / Lot Atrion Inflation Implanted:Qty: 1 on 05/08/2023 by Vern Bangura MD at [facility] N/A: Urethra 12/02/2025 [id number] / [id number] / [id number] Procedures Procedure Name Priority Date/Time Associated Diagnosis Comments GLUCOSE BY METER Routine 09/15/2023 6:15 AM YOUTH DEVELOPMENT PROFESSIONAL from Last 3 Months or Most Recently Relevant to Health Maintenance Results * (ABNORMAL) Glucose by meter (09/15/2023 6:15 AM YOUTH DEVELOPMENT PROFESSIONAL) GLUCOSE BY METER POCT 117(H) 70 - 99 mg/dL 09/15/2023 6:21 AM YOUTH DEVELOPMENT PROFESSIONAL LABORATORY POC Blood, Capillary BLOOD SPECIMEN / Unknown 09/15/2023 6:15 AM YOUTH DEVELOPMENT PROFESSIONAL 09/15/2023 6:21 AM YOUTH DEVELOPMENT PROFESSIONAL Vern Bangura MD LAB - BEAKER POCT Final R esult LABORATORY POC [facility] Acute Care Lab [address], [address] [place] [address], [facility] [phone] from Last 3 Months or Most Recently Relevant to Health Maintenance [place] Advance Directives For more information, please contact: [phone] * Full Code (Latest Code Status on File) Date Activated Date Inactivated Comments 09/14/2023 4:21 PM 09/15/2023 6:02 PM All basic and advanced life-sustaining interventions are performed as appropriate Question Answer Comments Code status determined by: Discussion with patie nt/ legal decision maker Care Teams Wedding Florist Relationship Specialty Start Date End Date No Ref-Primary, Physician PCP - General 05/08/23
--- OUTSIDE RECORDS SUMMARY | 2024-08-22 16:04 | XMS_ITS | Clinical Summary ---
Author Organization [email or web address] Address [place], [place] [address] Care Team Providers Care Aco Coordinator Name Role Phone April Gaxiola Primary Care Provider [phone] Allergies No known active allergies Medications Medication [...] >=3 years)(Flu Clinic Only) 06/22/2013,07/19/2011,07/24/2010 COVID-19 vaccine (Bux180 30mcg/0.3mL) PF, MDV 01/15/2021,12/25/2020 Influenza A (H1N1), [...] 102 01/21/2023 9:07 AM CDT Temperature 36.7 C (98.1 F) 11/13/2021 4:39 PM FOUNTAIN WAITRESS/WAITER Respiratory Rate 18 04/22/2011 3:28 PM CDT [...] 01/23/2021, Additional history exists COVID-19 vaccine series (3 - 2024- season) 2024 01/15/2021, 12/25/2020 Influenza for age 50-64 06/05/2024 06/26/20, 06/27/2021, 06/28/2020, Additional history exists Lipids for age 45-75 11/13/2027 11/13/2022, 10/20/19 Tetanus booster 12/21/2028 12/21/2018, 10/06, 10/20/2008 Tdap Completed 10/26/2014, 10/20/2008 HIV for age 15-65 Completed 11/24/2022 Hepatitis C screening for ag e 18-79 Completed 11/24/2022 Procedures Procedure Name Priority Date/Time Associated Diagnosis Comments LC HIV-1/O/2, 4TH GENERATION Routine 11/24/2022 4:39 PM FOUNTAIN WAITRESS/WAITER Screening for HIV (human immunodeficiency virus) LC HCV ANTIBODY RFX TO QUANT PCR Routine 11/24/2022 4:39 PM FOUNTAIN WAITRESS/WAITER Need for hepatitis C screening test LC LIPID PANEL Routine 11/13/2022 4:07 PM FOUNTAIN WAITRESS/WAITER Type 2 diabetes mellitus without complication, with long-term current use of insulin (HC) from Last 3 Months or Most Recently Relevant to Health Maintenance Results * LC HCV ANTIBODY RFX TO QUANT PCR (11/24/2022 4:39 PM FOUNTAIN WAITRESS/WAITER) HCV Ab Non Reactive Non Reactive 11/28/2022 4:08 AM FOUNTAIN WAITRESS/WAITER [facility] Blood BLOOD SPECIMEN / Unknown Venipuncture / Unknown 11/24/2022 4:39 PM FOUNTAIN WAITRESS/WAITER 11/24/2022 4:39 PM FOUNTAIN WAITRESS/WAITER Narrative [facility] - 11/28/2022 4:08 AM FOUNTAIN WAITRESS/WAITER Performed at: [address] [place] [id number] Circulation Director: Willy Pearson MD, Phone: [phone] April Gaxiola DO LABORATORY Performing Organization Address City/[facility]/ZIP Co de Phone Number [facility] ([facility]) [address] [place] [address], * LC HIV-1/O/2, 4TH GENERATION (11/24/2022 4:39 PM FOUNTAIN WAITRESS/WAITER) Pathologist [facility] [place] HIV Scr 4th Gen Non Reactive Non Reactive 11/27/2022 1:09 PM FOUNTAIN WAITRESS/WAITER [facility] ([facility]) Comment: HIV Negative HIV-1/HIV-2 antibodies and HIV-1 p24 antigen were NOT detected. There is no laboratory evidence of HIV infection. Blood BLOOD SPECIMEN / Unknown Venipuncture / Unknown 11/24/2022 4:39 PM FOUNTAIN WAITRESS/WAITER 11/24/2022 4:39 PM FOUNTAIN WAITRESS/WAITER Narrative [facility] ([facility]) - 11/27/2022 1:09 PM FOUNTAIN WAITRESS/WAITER Performed at: [address] [place] [id number] Circulation Director: Willy Pearson MD, Phone: [phone] April Khalida LABORATORY [facility] ([facility]) [address] [place] [address], * (ABNORMAL) LC LIPID PANEL (11/13/2022 4:07 PM FOUNTAIN WAITRESS/WAITER) [facility] Cholesterol, Total 257(H) 100 - 199 mg/dL 11/15/2022 11:08 AM [facility] ([facility]) Triglycerides 306(H) 0 - 149 mg/dL 11/15/2022 11:08 AM [facility] ([facility]) HDL Cholesterol 58 >39 mg/dL 11:08 AM [facility] ([facility]) VLDL Cholesterol Chon 55(H) 5 - 40 mg/dL 11/15/2022 11:08 AM [facility] ([facility]) LDL Chol Calc ([facility]) 144(H) 0 - 99 mg/dL 11/15/2022 11:08 AM FOUNTAIN WAITRESS/WAITER [facility] Blood BLOOD SPECIMEN / Unknown Venipuncture / Unknown 11/13/2022 4:07 PM FOUNTAIN WAITRESS/WAITER 11/13/2022 4:07 PM FOUNTAIN WAITRESS/WAITER Narrative [facility] - 11/15/2022 11:08 AM FOUNTAIN WAITRESS/WAITER Performed at: [address] [id number] Circulation Director: Willy Pearson MD, Phone: [phone] April Gaxiola DO SEND OUTS [facility] [address] [id number] from Last 3 Months or Most Recently Relevant to Health Maintenance Care Teams Aco Coordinator Relationship Specialty Start Date End Date April [place] [address] PCP - General Family Practice 11/13/22
--- OUTSIDE RECORDS SUMMARY | 2024-08-22 16:04 | XMS_ITS | Referral Summary ---
Author Organization [facility] Address [address] [place] [address] Care Team Providers Care Commercial Housekeeper Name Role Phone Elsewhere, Pcp Primary Care Provider Unavailabl e Source Comments Patient records contain information from all sites at [facility]. For routine questions regarding patient records, call [phone] during business hours, M-F 8:00 AM - 5:00 PM Central Time. Record requests for emergency care only can be directed to [phone] at any time.[facility] Allergies No known active allergies Medications [...] Plan of Treatment Not on file Insurance [facility] Care Teams Commercial Housekeeper Relationship Specialty Start Date End Date Elsewhere, Pcp PCP - General Internal Medicine 01/31/23
--- OUTSIDE RECORDS SUMMARY | 2024-08-22 16:04 | XMS_ITS | Clinical Summary ---
Author Organization [facility] Address [address] [place] [address] Care Team Providers Care Vice President Lending Name Role Phone No Ref-Primary, Physician Primary [...] Comments Blood Pressure 115/73 09/15/2023 7:36 AM PUBLICATIONS DISTRIBUTION CLERK Pulse 77 09/15/2023 7:36 AM PUBLICATIONS DISTRIBUTION CLERK Temperature 36.9 C (98.5 F) 09/15/2023 7:36 AM PUBLICATIONS DISTRIBUTION CLERK Respiratory Rate 16 09/15/2023 7:36 AM PUBLICATIONS DISTRIBUTION CLERK Oxygen Saturation 100% 09/15/2023 7:36 AM PUBLICATIONS DISTRIBUTION CLERK Inhaled Oxygen Concentration - - Weight 63.5 kg (140 lb) 09/14/2023 10:40 AM PUBLICATIONS DISTRIBUTION CLERK Height 154.9 cm (5' 1) 09/14/2023 10:40 AM PUBLICATIONS DISTRIBUTION CLERK Body Mass Index 26.45 09/14/2023 10:40 AM PUBLICATIONS DISTRIBUTION CLERK Plan of Treatment Health Maintenance Due Date [...] (once per calendar year) 2023 COVID-19 Vaccine (3 - 2023- season) 2024 01/15/2021, 01/15/2021, 12/25/2020 INFLUENZA VACCINE [...] this topic Medical Devices Implanted Type Area Front End Web Developer Device Identifier Shelf Expiration Date Model / Serial / Lot Atrion Inflation Implanted:Qty: 1 on 05/08/2023 by Vern Bangura MD at [facility] N/A: Urethra 12/02/2025 [id number] / [id number] / [id number] Procedures Procedure Name Priority Date/Time Associated Diagnosis Comments GLUCOSE BY METER Routine 09/15/2023 6:15 AM PUBLICATIONS DISTRIBUTION CLERK from Last 3 Months or Most Recently Relevant to Health Maintenance Results * (ABNORMAL) Glucose by meter (09/15/2023 6:15 AM PUBLICATIONS DISTRIBUTION CLERK) GLUCOSE BY METER POCT 117(H) 70 - 99 mg/dL 09/15/2023 6:21 AM PUBLICATIONS DISTRIBUTION CLERK LABORATORY POC Blood, Capillary BLOOD SPECIMEN / Unknown 09/15/2023 6:15 AM PUBLICATIONS DISTRIBUTION CLERK 09/15/2023 6:21 AM PUBLICATIONS DISTRIBUTION CLERK us Vern Bangura MD LAB - BEAKER POCT Final R esult LABORATORY POC [facility] Acute Care Lab [address], [address] [place] [address], [place] [phone] from Last 3 Months or Most Recently Relevant to Health Maintenance [place] Advance Directives For more information, please contact: [phone] * Full Code (Latest Code Status on File) Date Activated Date Inactivated Comments 09/14/2023 4:21 PM 09/15/2023 6:02 PM All basic and advanced life-sustaining interventions are performed as appropriate Question Answer Comments Code status determined by: Discussion with brent nt/ legal decision maker Care Teams Vice President Lending Relationship Specialty Start Date End Date No Ref-Primary, Physician PCP - General 05/08/23
== END 2024-08-22 16:03 | disposition home or self-care (01) ==
LOC: NFLDREF 16:02
PROVIDERS: PCP Family Medicine; Visit Provider Registered Nurse
DX: R33.9 Retention of urine, unspecified (principal)
CPT/HCPCS: 87086; 87186

== ENCOUNTER 2025-01-18 10:34 | Outpatient (CLI) | payer BC, SELFPAY | END 2025-01-18 10:35 | disposition home or self-care (01) | PROVIDERS: PCP Family Medicine; Visit Provider Registered Nurse | DX: E11.44 Type 2 diabetes mellitus with diabetic amyotrophy (principal); Z79.84 Long term (current) use of oral hypoglycemic drugs | CPT/HCPCS: 80053 ==